=== PATIENT | male | born 1980 | race Caucasian/White ===

== ENCOUNTER → 2017-05-29 12:47 | Outpatient (CLI) | payer OTHER, SELFPAY | PROVIDERS: Family Provider Internal Medicine Adolescent Medicine; PCP Internal Medicine Adolescent Medicine; Visit Provider Internal Medicine Adolescent Medicine | DX: R07.9 Chest pain, unspecified (principal); I10 Essential (primary) hypertension | CPT/HCPCS: 93017 ==

== ENCOUNTER → 2017-07-16 06:17 | Outpatient (CLI) | payer OTHER, SELFPAY ==
--- NOTE | 2017-07-16 06:48 | NM_ITS ---
History and Indications: Hypertension, hyperlipidemia, tobacco use, family history chest pain. Procedure: Patient exercised on Catrachito protocol 11 minutes, resting heart rate was 66 bpm resting blood pressure 146/68, with exercise maximum heart rate achieved was 1 34 bpm which is equal to 74% of the maximum predicted heart rate and a blood pressure was 164/89. Test was stopped due to shortness of breath and fatigue patient denied any complained of chest pain. Patient has good exercise capacity achieved 12.8mets of workload on treadmill, the blood pressure response to exercise was adequate, there was no exercise-induced chest discomfort. Patient did not achieve the target heart rate Electrocardiogram: Resting electrocardiogram showed sinus rhythm, with exercise there is less than 1.[address] segment depression noted from the baseline EKG. The EKG portion of the exercise Myoview is nondiagnostic. Cardiac stress and resting SPECT images: Cardiac stress and rest SPECT images were obtained using technetium 99 Myoview 31.3 mCi at stress and the 10.9 mCi at rest. Gated SPECT further analysis of segmental wall motion and calculation of the ejection fraction also done. Cardiac stress and rest SPECT images show uniform myocardial activity without any segmental perfusion abnormality, computer derived ejection fraction is 63% with no obvious regional wall motion abnormality, right ventricle is normal size and contractility. Conclusion: 1. The EKG portion of the exercise Myoview is nondiagnostic, patient has a good exercise capacity achieved 12.8mets of workload on treadmill, the blood pressure response to exercise was adequate, there was no exercise-induced chest discomfort. 2. No obvious scintigraphic evidence of reversible ischemia seen at this level of exercise, either derived ejection fraction is 63% with no obvious regional wall motion abnormality, right ventricle is normal size and contractility.
--- NOTE | 2017-07-16 09:40 | HMH.ITSHM ---
metoprolol atorvastatin protonix flomax
== END ==
PROVIDERS: Family Provider Internal Medicine Adolescent Medicine; PCP Internal Medicine Adolescent Medicine; Visit Provider Internal Medicine Adolescent Medicine
DX: R07.9 Chest pain, unspecified (principal)
CPT/HCPCS: 78452; 93017; A9502

== ENCOUNTER 2020-03-20 14:59 | Observation (INO) | payer OTHER, SELFPAY ==
[2020-03-20] VITALS (11 sets, daily range): BP systolic 105–133; BP diastolic 71–100; PULSE 74–97; RESP 16–18; TEMP 36.9–37; O2SAT 96–98; BMI 29.6; BMI 30.3; BMI 29.9
--- NOTE | 2020-03-20 15:04 | HMH.EDGENADL ---
ED Disposition Clinical Impression: Abscess Disposition: Admitted As Inpatient Condition on Discharge: Good Referrals: Duncan Morse MD [Primary Care Provider] - - Critical Care Critical Care Time: No Attestation: On , the high probability of a clinically significant, sudden or life threatening deterioration of the following system(s) required my full and direct attention, intervention and personal management. The time I documented below is in addition to time spent performing reported procedures but includes the following listed in this critical care notation. Medical Decision Making - Medical Records Medical records reviewed: Yes: I reviewed the patient's medical records. - Kiko Inquiry Pt receiving controlled substance: No Vital Signs: 03/20/20 14:59 03/20/20 16:59 03/20/20 18:43 Temperature 98.6 F Temperature Source Oral Pulse Rate [Right] 97 H 94 H 74 Respiratory Rate 16 18 16 Blood Pressure [Right Arm] 133/100 H 125/79 115/82 Blood Pressure Mean [Right Arm] 111 94 93 Blood Pressure Source [Right Arm] Automatic Cuff Automatic Cuff Automatic Cuff Blood Pressure Position [Right Arm] Sitting Supine Sitting 02 Sat by Pulse Oximetry 97 97 98 Oxygen Delivery Method Room Air Room Air Room Air - Lab Data Lab results reviewed: Yes: I reviewed the patient's lab results. Lab Results 03/20/20 15:08: WBC 12.5 H, RBC 4.99, Hgb 15.0, Hct 46.4, MCV 93.0, MCH 30.1, MCHC 32.4, RDW 13.4, Plt Count 253, MPV 8.0, Neut % (Auto) 76.2, Lymph % (Auto) 14.8, [place] % (Auto) 5.2, Eos % (Auto) 2.8, Baso % (Auto) 1.0, Neut # (Auto) 9.5 H, Lymph # (Auto) 1.9, [place] # (Auto) 0.7, Eos # (Auto) 0.4, Baso # (Auto) 0.1 03/20/20 15:08: Sodium 140, Potassium 3.9, Chloride 103, Carbon Dioxide 30, Anion Gap 10.9, BUN 16, Creatinine 0.90, Estimated Creat Clear 116, Estimated GFR 93, Est GFR ( Amer) 113, Glucose 104 H, Calcium 10.0 Result diagrams: 03/20/20 15:08 03/20/20 15:08 Orders (Tests/Meds): ED MEDICATIONS Generic Name Dose Route Start Last Admin Trade Name Freq PRN Reason Stop Dose Admin Acetaminophen 650 mg 03/20/20 20:11 Acetaminophen 325mg Tab PO 04/19/20 20:10 Q4HP PRN As Needed for Fever or Pain Docusate Sodium 100 mg 03/21/20 09:00 Docusate Sodium 100 Mg Capsule PO 04/20/20 08:59 DAILY DAVID Lactated Ringer's 1,000 mls @ 100 mls/hr 03/21/20 00:01 Lactated Ringer's 1000 Ml Bag IV 04/20/20 00:00 .Q10H DAVID Ibuprofen 400 mg 03/20/20 20:11 Ibuprofen 400 Mg Tablet PO 04/19/20 20:10 Q6HP PRN Mild Pain Morphine Sulfate 4 mg 03/20/20 20:11 Morphine 2mg/Ml Syringe IV 04/19/20 20:10 Q4HP PRN Severe Pain Ondansetron HCl 4 mg 03/20/20 20:11 Ondansetron 4mg/2ml Vial IV 04/19/20 20:10 Q8HP PRN Nausea Discontinued Medications Generic Name Dose Route Start Last Admin Trade Name Freq PRN Reason Stop Dose Admin Vancomycin HCl 1,500 mg/ 250 mls @ 125 mls/hr 03/20/20 16:15 03/20/20 17:43 Sodium Chloride IV 03/20/20 18:14 125 mls/hr ONCE ONE Administration Iopamidol 100 ml 03/20/20 17:42 03/20/20 17:42 Iopamidol-370 (76%);100ml Bottle IV 03/20/20 17:43 100 ml ONCE ONE Administration Miscellaneous 1 each 03/20/20 16:15 Vancomycin Consult Request * 04/19/20 16:14 CONSULT [facility] Morphine Sulfate 4 mg 03/20/20 16:16 03/20/20 16:17 Morphine 4mg/Ml Syringe IV 03/20/20 16:17 4 mg ONCE ONE Administration Ondansetron HCl 4 mg 03/20/20 16:16 03/20/20 16:17 Ondansetron 4mg/2ml Vial IV 03/20/20 16:17 4 mg ONCE ONE Administration Sodium Chloride 10 ml 03/20/20 17:42 03/20/20 17:42 Sodium Chloride 0.9% 10ml Syr (Rad Only) IV 03/20/20 17:43 10 ml ONCE ONE Administration ORDERS Category Date Time Status CT femur LT wo/w con Stat Cat Scan 03/20/20 16:17 Taken Consult to On-Call Gen'l Surgeon [CONS] Routine Cons 03/20/20 20:18 Ordered Basic Metabolic Le
--- NOTE | 2020-03-20 15:07 | CA_ITS ---
APPROVED REPORT Left Lower Extremity Venous Study for DVT. [employer] Installer: GUDELIA DUMONT, SYDS Indications Lower Extremity Pain: Left Lower Extremity Edema: Left redness, warmth to thigh Findings Color flow duplex of the left lower extremity demonstrates no evidence of superficial venous thrombophlebitis. Edematous tissue at the interior left thigh at area of intrest. Color flow duplex demonstrates no evidence of DVT of the following left lower extremity Veins:. Conclusion Color flow duplex of the left lower extremity demonstrates no evidence of superficial venous thrombophlebitis. Edematous tissue at the interior left thigh at area of intrest. Color flow duplex demonstrates no evidence of DVT of the following left lower extremity Veins:. Electronically signed by : Bud Cox MD 03/21/2020 14:41:09
--- NOTE | 2020-03-20 15:08 | PC.NURSE ---
notified [facility] lab of doppler order
[2020-03-20 15:20] LABS: Basophils # 0.1 K/mm3 (0-0.2); Eosinophils # 0.4 K/mm3 (0.0-0.4); Eosinophils % 2.8 % (0.1-12.0); Hematocrit 46.4 % (42.0-52.0); Lymphocytes # 1.9 K/mm3 (0.7-4.5); Lymphocytes % 14.8 % (10-50); Mean Corpuscular HGB Conc 32.4 g/dL (31.8-35.4); Mean Corpuscular Hemoglobin 30.1 pg (27.0-31.2); Monocytes # 0.7 K/mm3 (0.1-1.0); Monocytes % 5.2 % (1.7-9.3); Neutrophils # 9.5 K/mm3 (1.8-7.8); Neutrophils % 76.2 % (37.0-80.0); Platelet Count 253 K/mm3 (142-424); Red Blood Count 4.99 M/mm3 (4.60-6.20); Red Cell Distribution Width 13.4 % (11.5-17.5); White Blood Count 12.5 K/mm3 (4.8-10.8)
--- NOTE | 2020-03-20 15:37 | PC.NURSE ---
CV lab staff at
--- NOTE | 2020-03-20 16:04 | PC.NURSE ---
notified pharmacy of vancomycin consult
--- NOTE | 2020-03-20 16:17 | CT_ITS ---
PROCEDURE: CT FEMUR LT WO/W CON CLINICAL HISTORY: r/o Nec Fasc L thigh Pain and swelling in the mid aspect of the left thigh COMPARISON: No exams were available for comparison TECHNIQUE: Axial images obtained with sagittal and coronal reformats. All CT scans at the facility use one or more dose reduction, viz: automated exposure control, ma/kV adjustment per patient size (including targeted exams where dose is matched to indication, i.e. head), or iterative reconstruction technique. FINDINGS: No acute fracture or dislocation. No bony destructive process. There is mild stranding of the subcutaneous tissues medially along the left thigh. There is also mild haziness of the fat within the neurovascular bundle area. Subtle low-density changes are present within the mid to distal aspect the adductor longus muscle. There is some heterogeneous enhancement in this region. This area measures approximately 3 by 2 by 4.7 cm transverse AP and longitudinal. This is suspicious for a developing abscess. No soft tissue gas. No foreign body apparent. Small nodes are present in the left inguinal region. IMPRESSION: Suspect intramuscular developing abscess within the left adductor longus muscle as described above with associated cellulitis. Hematoma is included in the differential diagnosis. Dictated by: Bud Cox MD 03/21/2020 10:14 Bud Cox MD in OV 03/21/2020 10:14
[2020-03-20 16:35] LABS: Chloride 103 mmol/L (98-107); Potassium 3.9 mmoL/L (3.5-5.1); Sodium 140 mmol/L (136-145)
[2020-03-20 16:38] LABS: Anion Gap 10.9 mEq/L (5-15); Blood Urea Nitrogen 16 mg/dl (9-20); Carbon Dioxide 30 mmol/L (22.0-30.0); Creatinine Clearance Estimated 116 mL/min (50-200); Estimated Glomerular Filt Rate 93 ml/min (>60); GFR (African American) 113 ML/MIN (>60); Glucose 104 mg/dl (74-100)
--- NOTE | 2020-03-20 19:29 | PC.NURSE ---
Surgery paged at this time
--- NOTE | 2020-03-20 22:58 | PC.NURSE ---
PT ARRIVED TO THE FLOOR VIA W/C FROM ED WITH STAFF AT [id number]
[2020-03-21 00:39] VITALS: O2SAT 96
--- NOTE | 2020-03-21 02:26 | PC.NURSE ---
PT IS RESTING IN BED. RECEIVED PAIN MEDICATION FOR DISCOMFORT. PT HAS REDNESS NOTED TO THE LEFT MEDIAL THIGH THAT IS VERY TENDER/WARM TO TOUCH. PT HAS AMBULATED TO THE BATHROOM AND AROUND THE ROOM. PT HAS BEEN NPO SINCE MIDNIGHT. LUNG SOUNDS CLEAR. ABDOMEN SOFT/NON TENDER WITH ACTIVE BOWEL SOUNDS. PT STATES HIS LAST BOWEL MOVEMENT WAS YESTERDAY MORNING. VSS. WILL CONTINUE TO MONITOR.
[2020-03-21 04:00] VITALS: BP 93/50; PULSE 78; RESP 18; TEMP 36.4; O2SAT 96
[2020-03-21 06:00] VITALS: BMI 30.2
[2020-03-21 06:51] LABS: Basophils % 0.4 % (0.1-2.0); Eosinophils # 0.4 K/mm3 (0.0-0.4); Eosinophils % 3.2 % (0.1-12.0); Hematocrit 40.2 % (42.0-52.0); Lymphocytes # 1.4 K/mm3 (0.7-4.5); Lymphocytes % 12.8 % (10-50); Mean Corpuscular HGB Conc 32.3 g/dL (31.8-35.4); Mean Corpuscular Hemoglobin 30.3 pg (27.0-31.2); Mean Corpuscular Volume 93.6 fl (80-94); Mean Platelet Volume 7.8 fl (7.4-10.4); Monocytes # 0.8 K/mm3 (0.1-1.0); Monocytes % 7.3 % (1.7-9.3); Neutrophils # 8.4 K/mm3 (1.8-7.8); Neutrophils % 76.3 % (37.0-80.0); Platelet Count 210 K/mm3 (142-424); Red Blood Count 4.29 M/mm3 (4.60-6.20); Red Cell Distribution Width 13.4 % (11.5-17.5)
[2020-03-21 06:58] LABS: Chloride 107 mmol/L (98-107); Potassium 4.3 mmoL/L (3.5-5.1); Sodium 139 mmol/L (136-145)
[2020-03-21 07:01] LABS: Anion Gap 6.3 mEq/L (5-15); Blood Urea Nitrogen 18 mg/dl (9-20); Carbon Dioxide 30 mmol/L (22.0-30.0); Creatinine Clearance Estimated 103 mL/min (50-200); Estimated Glomerular Filt Rate 83 ml/min (>60); GFR (African American) 100 ML/MIN (>60); Glucose 126 mg/dl (74-100)
[2020-03-21 07:07] LABS: Calcium 8.3 mg/dl (8.4-10.2)
--- NOTE | 2020-03-21 07:33 | HMH.PHAINT ---
home medication reconciliation completed using list from [facility]
--- NOTE | 2020-03-21 07:34 | HMH.PHAVTE ---
[facility] Pharmacy VTE Monitoring - Patient Demographics Admission date: 03/21/20 Report Date: 03/21/20 Time: 07:34 Allergies/Adverse Reactions: Patient Allergies No Known Allergies Allergy (Unverified 06/29/18 11:26) Height: 1.57 m Weight: 74.4 kg Patient Problems: Current Active Problems Abscess (Acute) - VTE Risk Labs: VTE Related Lab Results Hgb 13.0 g/dL (14.1-18.0) L D 03/21/20 06:23 Hct 40.2 % (42.0-52.0) L 03/21/20 06:23 Plt Count 210 K/mm3 (142-424) 03/21/20 06:23 BUN 18 mg/dl (9-20) 03/21/20 06:23 Creatinine 1.00 mg/dl (0.66-1.25) 03/21/20 06:23 Estimated Creat Clear 103 mL/min (50-200) 03/21/20 06:23 Was VTE Risk Assessment Performed: Yes VTE Score: 0 VTE Risk Level: Very Low Risk Clinical Trial Participant: No - Prophylaxis VTE Prophylaxis Ordered?: Yes Types of VTE Prophylaxis: TEDS Knee High
[2020-03-21 08:00] VITALS: BP 107/71; PULSE 79; RESP 16; TEMP 36.8; O2SAT 98
--- NOTE | 2020-03-21 08:11 | HMH.GSCON ---
*Admission Date: 03/21/20 *Reason for consult:: Abscess *History of present illness: This is a 39-year-old gentleman seen in consultation from the service of Dr. Morse for evaluation regarding a left medial thigh abscess. He presents the emergency department yesterday evening with increasing erythema along the proximal left medial thigh. He also describes some crackly popping in the lower left leg. He states that this crackling was definitely below the knee; however, none of his erythematous changes or tenderness was below the knee. This morning he states he feels much better . Per the patient the redness has dramatically improved on antibiotics and he no longer has any sensation of crackling . Reportedly, the patient's CT scan was concerning for a 2.5 cm abscess. Forwarded from the emergency department evaluation: General Adult HPI - General Stated complaint: redness to thigh Time Seen by Provider: 03/20/20 15:04 Mode of Arrival: Ambulatory Source of Information: Patient - History of Present Illness HPI narrative: 39yo M with past medical history significant for prostatitis presents the emergency department secondary to erythema with pain to his left medial thigh. Patient reports he developed pain yesterday without erythema noticed erythema this morning. He outlined it with a marker and proceeded to see his urologist. By time he returned from his urologist the area in question had already expanded outside the marked area. He complains of extreme tenderness to palpate, pain with ambulation and moving his leg. He states he has a sensation of air bubbles or rice crispies. He denies fever, nausea/vomiting/diarrhea. He denies previous symptoms similar to this. He denies any lesion to his skin that could have been the origin for his current condition. Review of Systems - Constitutional Denies fever(s) - *Respiratory Denies cough - *Musculoskeletal Denies limited joint movement - Integumentary/Breasts Reports redness - Psychiatric Denies anxiety - Hematologic/Lymphatic Denies easy bruising [facility] History Medical History: Reports:: Hyperlipidemia, Hypertension Denies:: Cancer, Diabetes Mellitus Type 1, Diabetes Mellitus Type 2, MRSA *Have you ever received a pneumonia vaccine?: No *Have you received a flu vaccine this season?: No Other Surgeries: Yes: Cholecystectomy Amputation: No Fractures: No - *Social History Last grade of school completed: Some college Smoking Status: Current every day smoker Tobacco Type: cigarettes # Packs/Day (cigarettes): 1 #Yrs smoked (if former smoker): 20 Alcohol Intake: never Alcohol Intake Frequency:: holidays/special occasions only Substance Use Type: denies use *Occupational Status:: employed Housing: house Household Members: spouse *Travel in the last 8 weeks: None Family Hx:: Cancer, Hyperlipidemia, Hypertension, Kidney Disease Meds Home Medications Medication Instructions Recorded Confirmed Type atorvastatin 40 mg tablet 40 mg PO DAILY 06/29/18 03/20/20 History pantoprazole 40 mg tablet,delayed 40 mg PO DAILY 06/29/18 03/20/20 History release tamsulosin 0.4 mg capsule 0.4 mg PO DAILY 06/29/18 03/20/20 History Metoprolol Tartrate [Lopressor 25 mg PO DAILY 03/20/20 03/20/20 History 25mg tablet] Allergies Allergy/AdvReac Type Severity Reaction Status Date / Time No Known Allergies Allergy Unverified 06/29/18 11:26 Exam Vital signs and Labs for Last 24 Hours: Temp Pulse Resp BP Pulse Ox 97.6 F 78 18 93/50 L 96 03/21/20 04:00 03/21/20 04:00 03/21/20 04:00 03/21/20 04:00 03/21/20 04:00 Laboratory Results - last 24 hr 03/20/20 15:08: WBC 12.5 H, RBC 4.99, Hgb 15.0, Hct 46.4, MCV 93.0, MCH 30.1, MCHC 32.4, RDW 13.4, Plt Count 253, MPV 8.0, Neut % (Auto) 76.2, Lymph % (Auto) 14.8, [place] % (Auto) 5.2, Eos % (Auto) 2.8, Baso % (Auto) 1.0, Neut # (Auto) 9.5 H, Lymph # (Auto) 1.9, [place] # (Auto) 0.7, Eos # (Auto) 0.4, Baso #
--- NOTE | 2020-03-21 08:20 | HMH.HP ---
*Admission Date: 03/21/20 *Chief complaint: Left thigh swelling and redness *History of present illness: HPI narrative: 39yo M with past medical history significant for prostatitis presents the emergency department secondary to erythema with pain to his left medial thigh. Patient reports he developed pain yesterday without erythema noticed erythema this morning. He outlined it with a marker and proceeded to see his urologist. By time he returned from his urologist the area in question had already expanded outside the marked area. He complains of extreme tenderness to palpate, pain with ambulation and moving his leg. He states he has a sensation of air bubbles or rice crispies. He denies fever, nausea/vomiting/diarrhea. He denies previous symptoms similar to this. He denies any lesion to his skin that could have been the origin for his current condition. Medical Decision Narrative: 39yo M evaluated emergency department secondary to skin changes on his left medial thigh. Patient reports these changes began today and have expanded quickly. He reports sensation of rice crispies or bubbles in his skin. Differential diagnosis includes was not limited to: Erysipelas/cellulitis, DVT, necrotizing fasciitis. Ultrasound negative for blood clot. Patient started on IV vancomycin after blood cultures were obtained. CT with IV contrast has been ordered for lower extremity to rule out necrotizing fasciitis. CT scan concerning for 25 x 20 x 25 mm abscess to the adductor longus muscle. Case was discussed with Dr. Galindo of surgery at 1930. He advised to have medicine admit the patient and consult general surgery. Dr. Jones is covering for Dr. Ceron this evening and is coming on shift in a few moments. The case will be discussed with him for admission at checkout. Above notes per emergency room doctor. Agree with admission. Patient evaluated this morning, notes that he already feels better. Much less redness and pain. [facility] History I have reviewed the patient's past medical history: Yes Medical History: Reports:: Hyperlipidemia, Hypertension Denies:: Cancer, Diabetes Mellitus Type 1, Diabetes Mellitus Type 2, MRSA *Have you ever received a pneumonia vaccine?: No *Have you received a flu vaccine this season?: No Other Surgeries: Yes: Cholecystectomy Amputation: No Fractures: No - *Social History Last grade of school completed: Some college Smoking Status: Current every day smoker Tobacco Type: cigarettes # Packs/Day (cigarettes): 1 #Yrs smoked (if former smoker): 20 Alcohol Intake: never Alcohol Intake Frequency:: holidays/special occasions only Substance Use Type: denies use *Occupational Status:: employed Housing: house Household Members: spouse *Travel in the last 8 weeks: None Family Hx:: Cancer, Hyperlipidemia, Hypertension, Kidney Disease Review of Systems - Review of Systems Review of systems:: pertinent systems reviewed and negative unless documented below Meds Home Medications Medication Instructions Recorded Confirmed Type atorvastatin 40 mg tablet 40 mg PO DAILY 06/29/18 03/20/20 History pantoprazole 40 mg tablet,delayed 40 mg PO DAILY 06/29/18 03/20/20 History release tamsulosin 0.4 mg capsule 0.4 mg PO DAILY 06/29/18 03/20/20 History Metoprolol Tartrate [Lopressor 25 mg PO DAILY 03/20/20 03/20/20 History 25mg tablet] Allergies Allergy/AdvReac Type Severity Reaction Status Date / Time No Known Allergies Allergy Unverified 06/29/18 11:26 Exam Vital signs and Labs for Last 24 Hours: Temp Pulse Resp BP Pulse Ox 97.6 F 78 18 93/50 L 96 03/21/20 04:00 03/21/20 04:00 03/21/20 04:00 03/21/20 04:00 03/21/20 04:00 Laboratory Results - last 24 hr 03/20/20 15:08: WBC 12.5 H, RBC 4.99, Hgb 15.0, Hct 46.4, MCV 93.0, MCH 30.1, MCHC 32.4, RDW 13.4, Plt Count 253, MPV 8.0, Neut % (Auto) 76.2, Lymph % (Auto) 14.8, [place] % (Auto) 5.2, Eos % (Auto) 2.8, Baso % (Auto) 1.0, Neut # (Auto) 9.5
[2020-03-21 15:44] VITALS: BP 99/63; PULSE 78; RESP 15; TEMP 37.1; O2SAT 99
--- NOTE | 2020-03-21 18:22 | PC.NURSE ---
Pt alert and oriented x 4. RR even and unlabored and unlabored. Hs received IV ABT per apr. Has been up to chair this shift and showered. CB in reach. Abd soft and non tender. S1,S2. Lungs cta, L thing is less red and pt states it has improved as far as color, although it is still warm to touch. PRN Morphine x 1 this shift. No complaints at this time.
[2020-03-21 20:00] VITALS: BP 120/72; PULSE 84; RESP 15; TEMP 37.1; O2SAT 99
[2020-03-22 04:00] VITALS: BP 104/58; PULSE 88; RESP 15; TEMP 36.9; O2SAT 96
[2020-03-22 05:03] VITALS: BMI 32.3
--- NOTE | 2020-03-22 05:04 | PC.NURSE ---
Pt is A&Ox4. Lung sounds CTA. VSS. Pt has c/o left thigh pain x2 this shift, pt medicated per APR. Abscess on left thigh remains reddened and warm to touch. Active bowel sounds in all 4 quads, no BM noted this shift. Pt has taken self to the restroom this shift w/ no difficulty. No other acute changes or complaints at this time.
--- NOTE | 2020-03-22 07:08 | HMH.GSPN ---
Subjective Patient reports: no new complaints Progress Note: A&P (1) Cellulitis of thigh Status: Acute Assessment and plan: The patient is now on daptomycin and clindamycin. Clinically he has remained stable over the past 24 hours. Minimal blush and some swelling remains; however, no area of fluctuance or spreading cellulitis is noted. No need for urgent surgical intervention Close ongoing follow-up Continue antibiotics as per primary service If he does not show continued improvement in the next 3-5 days, repeat evaluation with either a CT scan or ultrasound warranted If he shows any signs of clinical deterioration, incision and drainage/possible debridement planned Exam Vital signs and Labs for Last 24 Hours: Temp Pulse Resp BP Pulse Ox 98.5 F 88 15 104/58 L 96 03/22/20 04:00 03/22/20 04:00 03/22/20 04:00 03/22/20 04:00 03/22/20 04:00 I & O for Last 24 hours: Intake & Output 03/19/20 03/20/20 03/21/20 03/22/20 11:59 11:59 11:59 11:59 Intake Total 1782 / 1782 1940 / 1940 Output Total 200 / 200 2750 / 2750 Balance 1582 / 1582 -810 / -810 Weight 164 lb 0.383 oz 175 lb 6 oz - Constitutional no acute distress - *Routine Respiratory Exam Absent: respiratory distress - *Routine Cardiovascular Exam Present: RRR - *Routine Skin Exam Comments: Left medial thigh unchanged. Minimal blush with no spreading cellulitis or subcutaneous emphysema noted. No fluctuance. Minimal induration (no change).
[2020-03-22 08:00] VITALS: BP 108/61; PULSE 89; RESP 18; TEMP 37.2; O2SAT 96
--- NOTE | 2020-03-22 08:40 | HMH.ACPN2 ---
Internal Medicine - PN: Subj *Date: 03/22/20 *Time: 08:40 Interval history: Patient had quite a bit of pain overnight when he moves the leg, but no fever, no increasing redness. Appreciate surgical note, reviewed. Exam Vital signs and Labs for Last 24 Hours: Temp Pulse Resp BP Pulse Ox 98.5 F 88 15 104/58 L 96 03/22/20 04:00 03/22/20 04:00 03/22/20 04:00 03/22/20 04:00 03/22/20 04:00 I & O for Last 24 hours: Intake & Output 03/19/20 03/20/20 03/21/20 03/22/20 11:59 11:59 11:59 11:59 Intake Total 1782 / 1782 1940 / 1940 Output Total 200 / 200 2750 / 2750 Balance 1582 / 1582 -810 / -810 Weight 164 lb 0.383 oz 175 lb 6 oz Narrative: Cardiopulmonary assessment unremarkable. Patient in good spirits but concerned about pain. Leg is improving in regards to the redness which is slight, and no crepitus noted. Abdomen soft nontender. No distal perfusion problems Assessment and Plan (1) Cellulitis of thigh Status: Acute Category: Medical Code(s): L03.119 - Cellulitis of unspecified part of limb - Assessment and plan all Dx Assessment and Plan for all problems:: Overall improving slightly, white count has trended downward. Continue daptomycin and clindamycin. Toradol and K pad for pain.
--- NOTE | 2020-03-22 15:05 | PC.NURSE ---
PT IS RESTING IN BED. PT STATED HE DID NOT SLEEP WELL LAST NIGHT B/C HIS PAIN WAS TOO SEVERE. PT HAS HAD ONE DOSE OF TORADOL THIS SHIFT AND HE STATED IT HAS WORKED WELL. KPAD HAS BEEN APPLIED TO THE LEFT THIGH. REDNESS NOTED TO THE THIGH BUT DOES NOT APPEAR TO HAVE SPREAD ANY FURTHER HOWEVER AREA IS STILL VERY WARM/TENDER. TOLERATED SHOWER THIS SHIFT. EATING AND DRINKING WELL. LUNG SOUND CLEAR. ABDOMEN SOFT/NON TENDER WITH ACTIVE BOWEL SOUNDS. VOIDING WELL. VSS. WILL CONTINUE TO MONITOR.
[2020-03-22 15:23] VITALS: BP 116/71; PULSE 97; RESP 16; TEMP 37.7; O2SAT 97
[2020-03-22 20:00] VITALS: BP 124/74; PULSE 70; RESP 14; TEMP 37.4; O2SAT 97
[2020-03-22 23:27] VITALS: TEMP 37.9
[2020-03-23 00:40] VITALS: TEMP 37
[2020-03-23 04:00] VITALS: BP 108/64; PULSE 78; RESP 16; TEMP 36.7; O2SAT 98
[2020-03-23 05:01] VITALS: BMI 32.2
--- NOTE | 2020-03-23 05:26 | PC.NURSE ---
pt has rested ok this shift, pt is alert and oriented, lungs remains clear to auscultate, heart reg, bs x 4 quads, left upper leg remains swollen, red, warm to touch, and painful. pt has ran a low grade fever with temp high being 100.2 pt very symptomatic and shivering with this fever and miserable per pt report, fever and pain both managed with IV torodol and tylenol. no needs at this time will continue to monito
[2020-03-23 06:47] VITALS: TEMP 37.4
[2020-03-23 07:41] LABS: Basophils % 0.2 % (0.1-2.0); Eosinophils # 0.3 K/mm3 (0.0-0.4); Hematocrit 40.1 % (42.0-52.0); Lymphocytes # 0.9 K/mm3 (0.7-4.5); Mean Corpuscular HGB Conc 32.5 g/dL (31.8-35.4); Mean Corpuscular Hemoglobin 30.3 pg (27.0-31.2); Mean Corpuscular Volume 93.3 fl (80-94); Monocytes # 0.5 K/mm3 (0.1-1.0); Monocytes % 4.8 % (1.7-9.3); Neutrophils # 8.4 K/mm3 (1.8-7.8); Platelet Count 219 K/mm3 (142-424); Red Cell Distribution Width 13.2 % (11.5-17.5); White Blood Count 10.1 K/mm3 (4.8-10.8)
[2020-03-23 07:43] LABS: Chloride 105 mmol/L (98-107); Sodium 139 mmol/L (136-145)
[2020-03-23 07:44] VITALS: BP 139/79; PULSE 85; RESP 18; TEMP 37.4; O2SAT 97
[2020-03-23 07:44] LABS: Potassium 4.5 mmoL/L (3.5-5.1)
[2020-03-23 07:46] LABS: Blood Urea Nitrogen 15 mg/dl (9-20); Creatinine Clearance Estimated 122 mL/min (50-200); Estimated Glomerular Filt Rate 93 ml/min (>60); GFR (African American) 113 ML/MIN (>60)
[2020-03-23 07:47] LABS: Anion Gap 8.5 mEq/L (5-15); Calcium 8.9 mg/dl (8.4-10.2); Carbon Dioxide 30 mmol/L (22.0-30.0); Glucose 111 mg/dl (74-100)
--- NOTE | 2020-03-23 08:05 | HMH.GSPN ---
Subjective Patient reports: no new complaints, still having pain Progress Note: A&P (1) Cellulitis of thigh Status: Acute Assessment and plan: Overall, the patient is slowly improving. He does continue to have fairly significant pain; however, overall cellulitic change (blush) improving. Continue antibiotics as per primary service Close outpatient follow-up when deemed appropriate for discharge No need for acute surgical intervention If he does not show continued improvement in the next 48-72 hours, repeat evaluation with either a CT scan or ultrasound warranted If he shows any signs of clinical deterioration, incision and drainage/possible debridement planned Exam Vital signs and Labs for Last 24 Hours: Temp Pulse Resp BP Pulse Ox 99.4 F 85 18 139/79 97 03/23/20 07:44 03/23/20 07:44 03/23/20 07:44 03/23/20 07:44 03/23/20 07:44 Laboratory Results - last 24 hr 03/23/20 07:10: WBC 10.1, RBC 4.30 L, Hgb 13.0 L, Hct 40.1 L, MCV 93.3, MCH 30.3, MCHC 32.5, RDW 13.2, Plt Count 219, MPV 8.0, Neut % (Auto) 83.0 H, Lymph % (Auto) 9.0 L, [place] % (Auto) 4.8, Eos % (Auto) 3.0, Baso % (Auto) 0.2, Neut # (Auto) 8.4 H, Lymph # (Auto) 0.9, [place] # (Auto) 0.5, Eos # (Auto) 0.3, Baso # (Auto) 0.0 03/23/20 07:10: Sodium 139, Potassium 4.5, Chloride 105, Carbon Dioxide 30, Anion Gap 8.5, BUN 15, Creatinine 0.90, Estimated Creat Clear 122, Estimated GFR 93, Est GFR ( Amer) 113, Glucose 111 H, Calcium 8.9 I & O for Last 24 hours: Intake & Output 03/20/20 03/21/20 03/22/20 03/23/20 11:59 11:59 11:59 11:59 Intake Total 1782 / 1782 2180 / 2180 2093 / 2093 Output Total 200 / 200 3400 / 3400 3025 / 3025 Balance 1582 / 1582 -1220 / -1220 -932 / -932 Weight 164 lb 0.383 oz 175 lb 6 oz 175 lb Microbiology Reports for the Last 24 Hours: Microbiology 03/20/20 16:20 Blood Blood Culture - Preliminary NO GROWTH AFTER 48 HOURS 03/20/20 16:20 Blood Blood Culture - Preliminary NO GROWTH AFTER 48 HOURS - Constitutional no acute distress - *Routine Respiratory Exam Absent: respiratory distress - *Routine Cardiovascular Exam Present: RRR - *Routine Skin Exam Comments: Left medial thigh tenderness to palpation remains. No significant cellulitic change. No significant induration or fluctuance.
--- NOTE | 2020-03-23 08:30 | HMH.DCSUM ---
General - General Admission date:: 03/20/20 Discharge date: 03/23/20 HPI HPI: HPI narrative: 39yo M with past medical history significant for prostatitis presents the emergency department secondary to erythema with pain to his left medial thigh. Patient reports he developed pain yesterday without erythema noticed erythema this morning. He outlined it with a marker and proceeded to see his urologist. By time he returned from his urologist the area in question had already expanded outside the marked area. He complains of extreme tenderness to palpate, pain with ambulation and moving his leg. He states he has a sensation of air bubbles or rice crispies. He denies fever, nausea/vomiting/diarrhea. He denies previous symptoms similar to this. He denies any lesion to his skin that could have been the origin for his current condition. Medical Decision Narrative: 39yo M evaluated emergency department secondary to skin changes on his left medial thigh. Patient reports these changes began today and have expanded quickly. He reports sensation of rice crispies or bubbles in his skin. Differential diagnosis includes was not limited to: Erysipelas/cellulitis, DVT, necrotizing fasciitis. Ultrasound negative for blood clot. Patient started on IV vancomycin after blood cultures were obtained. CT with IV contrast has been ordered for lower extremity to rule out necrotizing fasciitis. CT scan concerning for 25 x 20 x 25 mm abscess to the adductor longus muscle. Case was discussed with Dr. Galindo of surgery at 1930. He advised to have medicine admit the patient and consult general surgery. Dr. Jones is covering for Dr. Ceron this evening and is coming on shift in a few moments. The case will be discussed with him for admission at checkout. Above notes per emergency room doctor. Agree with admission. Patient evaluated this morning, notes that he already feels better. Much less redness and pain. Hospital Course Hospital Course: 39-year-old male admitted for concern for abscess in left medial thigh. Was initiated on empiric antibiotics and imaging obtained. Patient responded clinically to IV antibiotics. CT of legs showed no definitive abscess or fluid collection needing drainage. Surgery was consulted and recommended antibiotics/medical management at this time as there is no clear indication for surgical intervention. Patient was transitioned to oral antibiotics to continue treatment in the outpatient setting. Given normalization of white cell count, afebrile, improvement in erythema, meeting criteria for outpatient management. We will plan to continue clindamycin and doxycycline along with Toradol for pain. Afebrile, improved tenderness, no SOA, CP, SHORE, Nausea, vomiting. Objective Vital signs: Temp Pulse Resp BP Pulse Ox 99.4 F 85 18 139/79 97 03/23/20 07:44 03/23/20 07:44 03/23/20 07:44 03/23/20 07:44 03/23/20 07:44 no acute distress - *Routine HEENT Exam Head: Present: normocephalic Eye: Present: EOMI, PERRL ENT: Present: mucous membranes moist - *Routine Neck Exam Present: supple - *Routine Respiratory Exam Present: CTA bilaterally - *Routine Cardiovascular Exam Present: RRR - *Routine Abdominal Exam Present: soft, normoactive bowel sounds. Absent: tenderness - *Routine Extremities Exam Absent: cyanosis, clubbing, edema Comments: mild tenderness overlying ledial left thigh, intervally improved since admission. - *Routine Skin Exam Present: warm (slight erythema of skin overlying medial proximal thigh). Absent: rash Results Labs on day of discharge: Labs from last 24 hours 03/23/20 03/23/20 07:10 07:10 WBC 10.1 RBC 4.30 L Hgb 13.0 L Hct 40.1 L MCV 93.3 MCH 30.3 MCHC 32.5 RDW 13.2 Plt Count 219 MPV 8.0 Neut % (Auto) 83.0 H Lymph % (Auto) 9.0 L [place] % (Auto) 4.8 Eos % (Auto) 3.0 Baso % (Auto) 0.2 Neut # (Auto) 8.4 H Lymph
== END 2020-03-23 09:59 | disposition home or self-care (01) ==
LOC: ER 19:42 → 2ND 23:03
PROVIDERS: Admitting Provider Emergency Medicine; Emergency Provider Family Medicine; PCP Internal Medicine Adolescent Medicine; Visit Provider Internal Medicine Adolescent Medicine
DX: M60.052 Infective myositis, left thigh (principal); I10 Essential (primary) hypertension; Z72.0 Tobacco use; Z79.899 Other long term (current) drug therapy
CPT/HCPCS: 36415; 73702; 80048; 85025; 87040; 93971; 96365; 96375; 99284; G0378; J0878; J2405; J3370; Q9967; U0003

== ENCOUNTER 2020-03-25 14:14 | Inpatient (IN) | payer OTHER, SELFPAY ==
--- NOTE | 2020-03-25 13:32 | P.CONPHA_ITS ---
[facility] Pharmacy VTE Monitoring - Patient Demographics Admission date: 03/25/20 Report Date: 03/25/20 Time: 13:32 Allergies/Adverse Reactions: Patient Allergies No Known Allergies Allergy (Unverified 06/29/18 11:26) - Prophylaxis VTE Prophylaxis Ordered?: Yes Types of VTE Prophylaxis: TEDS Knee High Location of Applied Device: Bilateral Lower Extremeties
--- NOTE | 2020-03-25 13:32 | HMH.PHAINT ---
MEDICATION RECONCILIATION COMPLETED ON PATIENT USING EXTERNAL FILL HISTORY FROM PHARMACY AND DISCHARGE SUMMARY FROM PREVIOUS ADMISSION. -MUSTAPHA LAWSD
--- NOTE | 2020-03-25 13:37 | CT_ITS ---
PROCEDURE: CT FEMUR LT W CON CLINICAL HISTORY: LEFT FEMUR ABSCESS Midportion of the femur the medial side. COMPARISON: CT CT FEMUR LT WO/W CON from 03/20/2020 TECHNIQUE: Axial images obtained with sagittal and coronal reformats. All CT scans at the facility use one or more dose reduction, viz: automated exposure control, ma/kV adjustment per patient size (including targeted exams where dose is matched to indication, i.e. head), or iterative reconstruction technique. FINDINGS: Increased subcutaneous stranding which extends from the upper circumferentially to the upper portions of the lower leg and is much more extensive than on the prior CT. There is no enhancing rim enhancing fluid collection to indicate an organized abscess. There is subtle low density within and abductor muscle which was noted to be heterogeneously enhancing on the prior CT. On the current CT it measures at least 5.8 by 3.0 by 1.7 centimeters. There is moderate thickening at the medial facia in the upper thigh. Groin lymph nodes are not involved. The vasculature is unremarkable. There is no underlying bony involvement. The bony structures are unremarkable and uninvolved. There is probable sigmoid diverticulosis with no CT evidence of diverticulitis. IMPRESSION: Redemonstration of developing abscess versus hematoma. There is no organized abscess or involvement of the underlying bony structures. Marked increase in soft tissue edema throughout the thigh most prominently within the medial facia. No gas in the soft tissues. Dictated by: Kassie Moraes 03/26/2020 09:50 Kassie Moraes in [place] 03/26/2020 09:50
[2020-03-25 14:51] VITALS: BP 113/67; PULSE 101; RESP 18; TEMP 37.2; O2SAT 98; BMI 30.1
[2020-03-25 15:37] LABS: Basophils % 0.3 % (0.1-2.0); Eosinophils # 0.3 K/mm3 (0.0-0.4); Eosinophils % 3.3 % (0.1-12.0); Hematocrit 42.9 % (42.0-52.0); Hemoglobin 14.2 g/dL (14.1-18.0); Lymphocytes # 0.8 K/mm3 (0.7-4.5); Lymphocytes % 8.2 % (10-50); Mean Corpuscular HGB Conc 33.2 g/dL (31.8-35.4); Mean Corpuscular Hemoglobin 30.4 pg (27.0-31.2); Mean Corpuscular Volume 91.7 fl (80-94); Mean Platelet Volume 7.7 fl (7.4-10.4); Monocytes # 0.5 K/mm3 (0.1-1.0); Monocytes % 4.7 % (1.7-9.3); Neutrophils # 8.2 K/mm3 (1.8-7.8); Neutrophils % 83.5 % (37.0-80.0); Platelet Count 277 K/mm3 (142-424); Red Blood Count 4.67 M/mm3 (4.60-6.20); Red Cell Distribution Width 13.5 % (11.5-17.5); White Blood Count 9.8 K/mm3 (4.8-10.8)
--- NOTE | 2020-03-25 15:41 | HMH.HP ---
*Admission Date: 03/25/20 *Chief complaint: Left thigh redness, swelling and fever *History of present illness: 39-year-old extremely active male who was admitted to the hospital last week with redness and swelling of the left thigh and diagnosed with cellulitis, CT scan of femur showed developing abscess within the left adductor longus muscle of the thigh, treated with intravenous daptomycin and clindamycin and did well and was discharged with p.o. clindamycin and doxycycline 48 hours ago. Unfortunately over the past 24 hours he has worsened, swelling and redness have returned, and in fact have become worse than even his initial presentation. Patient contacted me and I direct admit him to the hospital for IV antibiotics and reimaging of the abscess area. On reflection patient notes that initial treatment with vancomycin in the hospital seemed to result in substantial improvement, and then changed to daptomycin did not seem to have as much symptomatic benefit. He has no other areas of redness or swelling on his skin. He does note that he has had for several months a cystic structure on the left medial thigh that has now vanished. [facility] History Medical History: Reports:: Hyperlipidemia, Hypertension Denies:: Cancer, Diabetes Mellitus Type 1, Diabetes Mellitus Type 2, MRSA *Have you ever received a pneumonia vaccine?: No *Have you received a flu vaccine this season?: No Other Surgeries: Yes: Cholecystectomy Amputation: No Fractures: No - *Social History Smoking Status: Current every day smoker Tobacco Type: cigarettes # Packs/Day (cigarettes): 1 #Yrs smoked (if former smoker): 20 Alcohol Intake: never Alcohol Intake Frequency:: holidays/special occasions only Substance Use Type: denies use *Occupational Status:: employed Housing: house Household Members: spouse *Travel in the last 8 weeks: None Family Hx:: Cancer, Hyperlipidemia, Hypertension, Kidney Disease Review of Systems - Review of Systems Review of systems:: pertinent systems reviewed and negative unless documented below Meds Home Medications Medication Instructions Recorded Confirmed Type atorvastatin 40 mg tablet 40 mg PO DAILY 06/29/18 03/25/20 History pantoprazole 40 mg tablet,delayed 40 mg PO DAILY 06/29/18 03/25/20 History release tamsulosin 0.4 mg capsule 0.4 mg PO DAILY 06/29/18 03/25/20 History Metoprolol Tartrate [Lopressor 25 mg PO DAILY 03/20/20 03/25/20 History 25mg tablet] Docusate Sodium 100 mg pe PO DAILY 03/25/20 03/25/20 History Doxycycline Hyclate [Doxycycline 100 mg PO BID 03/25/20 03/25/20 History 100mg Capsule] Ketorolac Tromethamine [Toradol 10 mg PO Q6H 03/25/20 03/25/20 History 10mg tablet] clindamycin HCL [Clindamycin HCl] 300 mg PO Q6H 03/25/20 03/25/20 History Allergies Allergy/AdvReac Type Severity Reaction Status Date / Time No Known Allergies Allergy Unverified 06/29/18 11:26 Exam Vital signs and Labs for Last 24 Hours: Temp Pulse Resp BP Pulse Ox 98.9 F 101 H 18 113/67 98 03/25/20 14:51 03/25/20 14:51 03/25/20 14:51 03/25/20 14:51 03/25/20 14:51 Laboratory Results - last 24 hr 03/25/20 15:20: WBC 9.8, RBC 4.67, Hgb 14.2, Hct 42.9, MCV 91.7, MCH 30.4, MCHC 33.2, RDW 13.5, Plt Count 277 D, MPV 7.7, Neut % (Auto) 83.5 H, Lymph % (Auto) 8.2 L, [place] % (Auto) 4.7, Eos % (Auto) 3.3, Baso % (Auto) 0.3, Neut # (Auto) 8.2 H, Lymph # (Auto) 0.8, [place] # (Auto) 0.5, Eos # (Auto) 0.3, Baso # (Auto) 0.0 I & O for Last 24 hours: Intake & Output 03/23/20 03/24/20 03/25/20 03/26/20 11:59 11:59 11:59 11:59 Intake Total 120 / 120 Balance 120 / 120 Weight 164 lb 9 oz - *Routine HEENT Exam Head: Present: normocephalic Eye: Present: EOMI, PERRL ENT: Present: mucous membranes moist - *Routine Neck Exam Present: supple. Absent: lymphadenopathy - *Routine Respiratory Exam Present: CTA bilaterally - *Routine Cardiovascular Exam Present: RRR - *Routine Abdominal Exam P
[2020-03-25 15:46] LABS: Chloride 106 mmol/L (98-107)
--- NOTE | 2020-03-25 15:46 | HMH.PHACONS ---
- Pharmacy Consult Date: 03/25/20 Time: 15:46 Referring provider: DR. POLK Reason for Consult:: VANCOMYCIN DOSING Allergies and ADEs:: Allergies Allergy/AdvReac Type Severity Reaction Status Date / Time No Known Allergies Allergy Unverified 06/29/18 11:26 Home Medications:: Home Medications Medication Instructions Recorded Confirmed Type atorvastatin 40 mg tablet 40 mg PO DAILY 06/29/18 03/25/20 History pantoprazole 40 mg tablet,delayed 40 mg PO DAILY 06/29/18 03/25/20 History release tamsulosin 0.4 mg capsule 0.4 mg PO DAILY 06/29/18 03/25/20 History Metoprolol Tartrate [Lopressor 25 mg PO DAILY 03/20/20 03/25/20 History 25mg tablet] Docusate Sodium 100 mg pe PO DAILY 03/25/20 03/25/20 History Doxycycline Hyclate [Doxycycline 100 mg PO BID 03/25/20 03/25/20 History 100mg Capsule] Ketorolac Tromethamine [Toradol 10 mg PO Q6H 03/25/20 03/25/20 History 10mg tablet] clindamycin HCL [Clindamycin HCl] 300 mg PO Q6H 03/25/20 03/25/20 History Height: 1.57 m Weight: 74.644 kg Laboratory Results:: Laboratory Results - last 24 hr 03/25/20 15:20: WBC 9.8, RBC 4.67, Hgb 14.2, Hct 42.9, MCV 91.7, MCH 30.4, MCHC 33.2, RDW 13.5, Plt Count 277 D, MPV 7.7, Neut % (Auto) 83.5 H, Lymph % (Auto) 8.2 L, [place] % (Auto) 4.7, Eos % (Auto) 3.3, Baso % (Auto) 0.3, Neut # (Auto) 8.2 H, Lymph # (Auto) 0.8, [place] # (Auto) 0.5, Eos # (Auto) 0.3, Baso # (Auto) 0.0 Medical History: Reports:: Hyperlipidemia, Hypertension Denies:: Cancer, Diabetes Mellitus Type 1, Diabetes Mellitus Type 2, MRSA Assessment and Plan (1) Abscess Status: Acute Category: Medical Code(s): L02.91 - Cutaneous abscess, unspecified (2) Cellulitis of thigh Status: Acute Category: Medical Code(s): L03.119 - Cellulitis of unspecified part of limb - Assessment and plan all Dx Assessment and Plan for all problems:: Pharmacokinetic dosing service Objective: Patient: Floor: Age: 39 yo Serum creatinine: 0.90 mg/dL Height: 61.8 Inches Weight (kg): 75 Assessment: IBW (kg): 54.14 Dosing wt(kg): 75 Estimated Creatinine clearance (ml/min): 83.5 CRCL method: Cockcroft and Gault using ibw(default). Drug selected: Vancomycin Loading dose (mg): 0 Vd (liters): 52.5 (factor used: 0.7 L/kg) [place] (hr-1): 0.074 Half life (hrs): 9.37 Recommended dose: 1250 mg Interval: 12 hrs Infusion time (hrs): 2.0 Predicted peak (mcg/mL): 37.6 Predicted trough (mcg/mL): 17.94 Total body weight is being used for vancomycin dosing. Recommendations: Give Vancomycin 1250 mg q 12 hrs with an expected Cpeak of 37.6 mcg/ml and an expected Ctrough of 17.94 mcg/ml Thank you for the consult, will continue to follow. Signature: MUSTAPHA LAWSD
[2020-03-25 15:47] LABS: Sodium 138 mmol/L (136-145)
[2020-03-25 15:49] LABS: Blood Urea Nitrogen 19 mg/dl (9-20); Creatinine Clearance Estimated 94 mL/min (50-200); Estimated Glomerular Filt Rate 74 ml/min (>60); GFR (African American) 90 ML/MIN (>60)
[2020-03-25 15:50] LABS: Calcium 9.1 mg/dl (8.4-10.2); Carbon Dioxide 27 mmol/L (22.0-30.0); Glucose 118 mg/dl (74-100)
[2020-03-25 15:55] LABS: C-Reactive Protein 153.9 mg/L (0-4)
--- NOTE | 2020-03-25 15:55 | PC.NURSE ---
Paged budget consultant general surgeon for this pt. Returned call at this time and transferred to Dr. Morse.
[2020-03-25 16:02] LABS: Erythrocyte Sedimentation Rate 26 mm/hr (0-15)
--- NOTE | 2020-03-25 18:46 | PC.WOUNDNOTE ---
Wound Location: Length: Width: Depth: Undermining Y/N: Tunneling cm: Granulation %: Slough/necrotic tissue %: Inflammation/swelling Y/N: Pain and/or tenderness Y/N: Exudate: Serosanguinous Sanguinous Serosanguinous Seropurulent Purulent Color: Clear [place] Cloudy/milky [place] Red Green Yellow Brown [place] Blue Consistency: Thick Thin Amount: None Scant Small Moderate Large Odor Y/N:
[2020-03-25 20:00] VITALS: BP 117/56; PULSE 92; RESP 18; TEMP 36.4; O2SAT 98
[2020-03-26] VITALS (7 sets, daily range): BP systolic 109–154; BP diastolic 56–72; PULSE 89–117; RESP 17–18; TEMP 36.8–39.5; O2SAT 95–100; BMI 30.6
--- NOTE | 2020-03-26 01:42 | PC.NURSE ---
RN aware of temperature out of range.
--- NOTE | 2020-03-26 04:35 | PC.NURSE ---
Pt has slept at intervals this shift. Has c/o throbbing to LLE. During assessment, erythema and edema noted to inner upper thigh to knee. Pt has been febrile and tachycardic this shift. Medicated per apr. He is currently NPO for AM consult. Has ambulated to BR and voided x2. No other concerns. Will continue to monitor.
[2020-03-26 06:49] LABS: Basophils % 0.3 % (0.1-2.0); Eosinophils # 0.4 K/mm3 (0.0-0.4); Eosinophils % 4.7 % (0.1-12.0); Hematocrit 40.7 % (42.0-52.0); Hemoglobin 13.4 g/dL (14.1-18.0); Lymphocytes % 11.5 % (10-50); Mean Corpuscular HGB Conc 32.9 g/dL (31.8-35.4); Mean Corpuscular Hemoglobin 30.7 pg (27.0-31.2); Mean Corpuscular Volume 93.3 fl (80-94); Mean Platelet Volume 7.6 fl (7.4-10.4); Monocytes # 0.5 K/mm3 (0.1-1.0); Monocytes % 6.1 % (1.7-9.3); Neutrophils # 6.6 K/mm3 (1.8-7.8); Neutrophils % 77.4 % (37.0-80.0); Platelet Count 262 K/mm3 (142-424); Red Blood Count 4.36 M/mm3 (4.60-6.20); Red Cell Distribution Width 13.5 % (11.5-17.5); White Blood Count 8.5 K/mm3 (4.8-10.8)
[2020-03-26 06:56] LABS: Chloride 105 mmol/L (98-107); Potassium 4.3 mmoL/L (3.5-5.1); Sodium 140 mmol/L (136-145)
[2020-03-26 06:59] LABS: Anion Gap 9.3 mEq/L (5-15); Blood Urea Nitrogen 19 mg/dl (9-20); Calcium 8.2 mg/dl (8.4-10.2); Carbon Dioxide 30 mmol/L (22.0-30.0); Creatinine Clearance Estimated 95 mL/min (50-200); Estimated Glomerular Filt Rate 74 ml/min (>60); GFR (African American) 90 ML/MIN (>60); Glucose 118 mg/dl (74-100)
--- NOTE | 2020-03-26 08:30 | P.PN_ITS ---
Internal Medicine - PN: Subj *Date: 03/26/20 *Time: 08:30 Interval history: Low-grade fevers overnight, continues to have leg pain and some hip pain from his change in ambulatory activity. Exam Vital signs and Labs for Last 24 Hours: Temp Pulse Resp BP Pulse Ox 98.2 F 89 18 113/60 98 03/26/20 08:00 03/26/20 08:00 03/26/20 08:00 03/26/20 08:00 03/26/20 08:00 Laboratory Results - last 24 hr 03/25/20 15:20: WBC 9.8, RBC 4.67, Hgb 14.2, Hct 42.9, MCV 91.7, MCH 30.4, MCHC 33.2, RDW 13.5, Plt Count 277 D, MPV 7.7, Neut % (Auto) 83.5 H, Lymph % (Auto) 8.2 L, [place] % (Auto) 4.7, Eos % (Auto) 3.3, Baso % (Auto) 0.3, Neut # (Auto) 8.2 H, Lymph # (Auto) 0.8, [place] # (Auto) 0.5, Eos # (Auto) 0.3, Baso # (Auto) 0.0 03/25/20 15:20: Sodium 138, Potassium 4.0, Chloride 106, Carbon Dioxide 27, Anion Gap 9.0, BUN 19 D, Creatinine 1.10 D, Estimated Creat Clear 94, Estimated GFR 74, Est GFR ( Amer) 90 D, Glucose 118 H, Calcium 9.1 03/25/20 15:20: ESR 26 H 03/25/20 15:20: C-Reactive Protein 153.9 H 03/26/20 05:55: WBC 8.5, RBC 4.36 L, Hgb 13.4 L, Hct 40.7 L, MCV 93.3, MCH 30.7, MCHC 32.9, RDW 13.5, Plt Count 262, MPV 7.6, Neut % (Auto) 77.4, Lymph % (Auto) 11.5, [place] % (Auto) 6.1, Eos % (Auto) 4.7, Baso % (Auto) 0.3, Neut # (Auto) 6.6, Lymph # (Auto) 1.0, [place] # (Auto) 0.5, Eos # (Auto) 0.4, Baso # (Auto) 0.0 03/26/20 05:55: Sodium 140, Potassium 4.3, Chloride 105, Carbon Dioxide 30, Anion Gap 9.3, BUN 19, Creatinine 1.10, Estimated Creat Clear 95, Estimated GFR 74, Est GFR ( Amer) 90, Glucose 118 H, Calcium 8.2 L I & O for Last 24 hours: Intake & Output 03/23/20 03/24/20 03/25/20 03/26/20 11:59 11:59 11:59 11:59 Intake Total 470 / 470 Balance 470 / 470 Weight 166 lb 8 oz Microbiology Reports for the Last 24 Hours: Microbiology 03/25/20 15:00 Nasopharyngeal Coronavirus COVID-19 PCR - Final Narrative: Alert, oriented, pleasant, talkative. Leg is swollen, may be a little less red than yesterday afternoon. But certainly ammonia still operator. Distal calf is not swollen. Cardiopulmonary assessment unremarkable. Neurologically intact, ENT exam clear Assessment and Plan (1) Abscess Status: Acute Category: Medical Code(s): L02.91 - Cutaneous abscess, unspecified (2) Cellulitis of thigh Status: Acute Category: Medical Code(s): L03.119 - Cellulitis of unspecified part of limb - Assessment and plan all Dx Assessment and Plan for all problems:: Official CT report pending. Agree with surgical recommendations for Ortho consult to make sure were not dealing with compartment syndrome. Continue antibiotics.
--- NOTE | 2020-03-26 08:42 | HMH.GSCON ---
*Admission Date: 03/25/20 *Reason for consult:: Left medial thigh cellulitis/abscess *History of present illness: This is a 39-year-old gentleman who was readmitted after recent short hospital stay for treatment of left medial thigh cellulitis/possible developing abscess. Upon discharge he noted worsening of symptomatology and the decision was made for readmission. Please see HPI from admission H&P forwarded below. Forwarded from admission H&P: 39-year-old extremely active male who was admitted to the hospital last week with redness and swelling of the left thigh and diagnosed with cellulitis, CT scan of femur showed developing abscess within the left adductor longus muscle of the thigh, treated with intravenous daptomycin and clindamycin and did well and was discharged with p.o. clindamycin and doxycycline 48 hours ago. Unfortunately over the past 24 hours he has worsened, swelling and redness have returned, and in fact have become worse than even his initial presentation. Patient contacted me and I direct admit him to the hospital for IV antibiotics and reimaging of the abscess area. On reflection patient notes that initial treatment with vancomycin in the hospital seemed to result in substantial improvement, and then changed to daptomycin did not seem to have as much symptomatic benefit. He has no other areas of redness or swelling on his skin. He does note that he has had for several months a cystic structure on the left medial thigh that has now vanished. Review of Systems - Constitutional Reports fever(s) - Eyes Denies change in vision - ENT Denies difficulty swallowing - *Cardiovascular Denies chest pain - *Respiratory Denies cough - *Gastrointestinal Denies abdominal pain - *Genitourinary Denies difficulty urinating - *Musculoskeletal Reports joint pain - Integumentary/Breasts Reports redness - *Neurologic Denies abnormal movements - Psychiatric Denies anxiety - Endocrine Denies cold intolerance - Hematologic/Lymphatic Denies easy bleeding - Allergic/Immunologic Denies wheezing [facility] History Medical History: Reports:: Hyperlipidemia, Hypertension Denies:: Cancer, Diabetes Mellitus Type 1, Diabetes Mellitus Type 2, MRSA *Have you ever received a pneumonia vaccine?: No *Have you received a flu vaccine this season?: No Other Surgeries: Yes: Cholecystectomy Amputation: No Fractures: No - *Social History Smoking Status: Current every day smoker Tobacco Type: cigarettes # Packs/Day (cigarettes): 1 #Yrs smoked (if former smoker): 20 Alcohol Intake: current Alcohol Intake Frequency:: holidays/special occasions only Substance Use Type: denies use *Occupational Status:: employed Housing: house Household Members: spouse *Travel in the last 8 weeks: None Family Hx:: Cancer, Hyperlipidemia, Hypertension, Kidney Disease Meds Home Medications Medication Instructions Recorded Confirmed Type atorvastatin 40 mg tablet 40 mg PO DAILY 06/29/18 03/25/20 History pantoprazole 40 mg tablet,delayed 40 mg PO DAILY 06/29/18 03/25/20 History release tamsulosin 0.4 mg capsule 0.4 mg PO DAILY 06/29/18 03/25/20 History Metoprolol Tartrate [Lopressor 25 mg PO DAILY 03/20/20 03/25/20 History 25mg tablet] Docusate Sodium 100 mg pe PO DAILY 03/25/20 03/25/20 History Doxycycline Hyclate [Doxycycline 100 mg PO BID 03/25/20 03/25/20 History 100mg Capsule] Ketorolac Tromethamine [Toradol 10 mg PO Q6H 03/25/20 03/25/20 History 10mg tablet] clindamycin HCL [Clindamycin HCl] 300 mg PO Q6H 03/25/20 03/25/20 History Allergies Allergy/AdvReac Type Severity Reaction Status Date / Time No Known Allergies Allergy Unverified 06/29/18 11:26 Exam Vital signs and Labs for Last 24 Hours: Temp Pulse Resp BP Pulse Ox 98.2 F 89 18 113/60 98 03/26/20 08:00 03/26/20 08:00 03/26/20 08:00 03/26/20 08:00 03/26/20 08:00 Laboratory Results - last 24 hr 03/25/20 15:20: WBC 9
--- NOTE | 2020-03-26 12:42 | MR_ITS ---
PROCEDURE: MR FEMUR LT WO/W CON CLINICAL INDICATION: POSSIBLE THIGH ABSCESS Possible thigh abscess. Redness and swelling on the medial aspect of the thigh x1 week. Fever and pain. COMPARISON: MR MR HIP LT WO/W CON from 03/26/2020 TECHNIQUE: Routine multiplanar multi echo sequences are performed prior to and following the IV administration of 15 cc ProHance. FINDINGS: There is extensive edema throughout the medial superficial soft tissues and the abductor muscles which also involves the medial aspect of the quadriceps. There is loss of the normal architecture of a muscle within the medial compartment. There is central low density in this muscle which could represent a developing abscess which is not organized, however, a developing area of necrosis cannot be excluded. There is enhancement in the adjacent portions of the abductor musculature. There is spotty scattered edema and enhancement within the gluteal musculature bilaterally. There is no hip joint effusion. There is no involvement of the underlying bony structures. IMPRESSION: Severe left thigh infection involving the medial soft tissues and musculature without organized abscess or visible gas. Developing abscess or developing area of necrosis may be present. A component of compartment syndrome may be present. Dictated by: Kassie Moraes 03/27/2020 09:45 Kassie Moraes in [place] 03/27/2020 09:45
--- NOTE | 2020-03-26 12:42 | MR_ITS ---
PROCEDURE: MR HIP LT WO/W CON CLINICAL INDICATION: POSSIBLE THIGH ABSCESS Redness and swelling on the medial aspect of the thigh x1 week. Fever and pain. COMPARISON: No exams were available for comparison TECHNIQUE: Routine multiplanar multi echo sequences are performed without gadolinium enhancement. 15 cc ProHance was administered intravenously following acquisition of noncontrast images. FINDINGS: There is no right or left hip joint effusion. There is edema within the abductor musculature. There is fluid at the fascial planes. Fluid surrounds there is extensive fluid within the overlying soft tissues. An elongated fluid collection is developing in the deep portion of the abductor musculature visible on axial inversion study series 3 images 25 through 28. correlate clinically to assess for developing compartment syndrome. There is scattered edema of in the gluteal muscles posteriorly. IMPRESSION: Extensive edema affecting multiple muscles with fluid developing along the fascial layers. Small elongated fluid collection measuring and 1.2 x 0.4 by 1.7 centimeters which could represent a developing abscess. Correlate clinically to exclude developing compartment syndrome. Dictated by: Kassie Moraes 03/27/2020 08:20 Kassie Moraes in OV 03/27/2020 08:21
--- NOTE | 2020-03-26 13:05 | HMH.ORTHOCON ---
*Admission Date: 03/25/20 *Reason for consult:: L thigh pain, swelling; fevers *History of present illness: 39-year-old gentleman admitted for left thigh pain, redness and fevers. He recently had a short hospital stay for the same complaint, after which his symptoms dramatically improved with IV antibiotics. He began noticing redness and pain in the thigh around 6 days ago. He denies any preceding injuries, no cuts or scrapes, no pimples or ingrown hairs. No recent illnesses, no recent dental work. No history of autoimmune disease, no cancer history, no immunosuppressant medications. No recent tattoos or shaving in this region. His first hospitalization was treated with intravenous daptomycin and clindamycin, which significantly improved his redness and swelling. CT scan at that time was concerning for a possible developing abscess within the left abductor longus muscle. He was discharged home on clindamycin and doxycycline, but over the following 24 hours his symptoms return in became worse in severity than they were originally. He had fevers at home reaching 104 degrees, documented as 103 on arrival to the hospital. He denies any chest pain or shortness of breath, no abdominal pain. He has a history of prostate issues and has had bouts of prostatitis in the past, most recently in January 2020. This was treated with oral antibiotics. He reports pain in the left hip and thigh, with redness on the inner aspect of the thigh. No current scrotal swelling or erythema, no penile discharge. He is currently under several blankets and shivering, reporting chills. Blood cultures taken, pending. [facility] History I have reviewed the patient's past medical history: Yes Medical History: Reports:: Hyperlipidemia, Hypertension Denies:: Cancer, Diabetes Mellitus Type 1, Diabetes Mellitus Type 2, MRSA *Have you ever received a pneumonia vaccine?: No *Have you received a flu vaccine this season?: No Other Surgeries: Yes: Cholecystectomy Amputation: No Fractures: No - *Social History Smoking Status: Current every day smoker Tobacco Type: cigarettes # Packs/Day (cigarettes): 1 #Yrs smoked (if former smoker): 20 Alcohol Intake: current Alcohol Intake Frequency:: holidays/special occasions only Substance Use Type: denies use *Occupational Status:: employed Housing: house Household Members: spouse *Travel in the last 8 weeks: None Family Hx:: Cancer, Hyperlipidemia, Hypertension, Kidney Disease Review of Systems - Review of Systems Review of systems:: pertinent systems reviewed and negative unless documented below - Constitutional Reports chills, Reports fever(s) - Eyes Denies blurry vision - ENT Denies dental pain, Denies sinus pressure, Denies throat swelling - *Cardiovascular Denies chest pain, Denies shortness of breath - *Respiratory Denies shortness of breath - *Gastrointestinal Denies abdominal pain - *Genitourinary Reports difficulty urinating, Reports scrotal swelling, Denies blood in urine, Denies penile discharge - *Musculoskeletal Reports joint pain - Integumentary/Breasts Reports redness - *Neurologic Denies abnormal movements, Denies dizziness, Denies localized weakness, Denies loss of vision Meds Home Medications Medication Instructions Recorded Confirmed Type atorvastatin 40 mg tablet 40 mg PO DAILY 06/29/18 03/25/20 History pantoprazole 40 mg tablet,delayed 40 mg PO DAILY 06/29/18 03/25/20 History release tamsulosin 0.4 mg capsule 0.4 mg PO DAILY 06/29/18 03/25/20 History Metoprolol Tartrate [Lopressor 25 mg PO DAILY 03/20/20 03/25/20 History 25mg tablet] Docusate Sodium 100 mg PO DAILY 03/25/20 03/26/20 History Doxycycline Hyclate [Doxycycline 100 mg PO BID 03/25/20 03/25/20 History 100mg Capsule] Ketorolac Tromethamine [Toradol 10 mg PO Q6H 03/25/20 03/25/20 History 10mg tablet] clindamycin HCL [Clindamycin HCl] 300 mg PO Q6H 03/25/20 03/25/20 History Allergies Allergy/Ad
[2020-03-26 17:34] LABS: Microscopic, Urine URINE MICROSCOPIC (MICROSCOPIC)
[2020-03-26 17:45] LABS: Appearance,Urine CLEAR (Clear); Bilirubin,Urine Negative (Negative); Blood, Urine TRACE-I (Negative); Color,Urine DK YELLOW (Yellow); Glucose,Urine (UA) Negative (Negative); Ketones,Urine Negative (Negative); Leukocyte Esterase,Urine Negative (Negative); Nitrate,Urine Negative (Negative); Protein,Urine 1+ (Negative); Specific Gravity, Urine >= 1.030 (1.005-1.030); Urobilinogen,Urine 0.2 EU/dl (0.2)
[2020-03-26 18:16] LABS: Bacteria,Urine 3+ /lpf; WBC,Urine Occasional #/hpf (0-3)
--- NOTE | 2020-03-26 18:44 | PC.NURSE ---
PT IS SITTING UP IN THE CHAIR. ALERT AND ORIENTED X4. PT HAS HAS SOME ISSUES WITH PAIN T/O THE SHIFT. PT STATED EARLY THIS AFTERNOON BEFORE HE WENT DOWN FOR MRI THE TORADOL HAS BEEN HELPING WITH HIS FEVERS BUT HAS NOT TOUCHED THE PAIN. WHEN PT WAS DOWN FOR MRI THE TECH CALLED UP AND STATED PT STILL HAD 35 MIN LEFT AND HE WAS IN EXCRUCIATING PAIN. PCP WAS ON THE FLOOR AT THE TIME AND ORDERED MORPHINE 2 MG. PT RECEIVED A DOSE OF MORPHINE WHILE IN THE MRI FROM INSTRUCTIONAL CONSULTANT. PT ARRIVED BACK TO THE FLOOR AND STATED THE MORPHINE LASTED FOR ABOUT 5 MIN AND THE PAIN WAS BACK. WHEN PT WAS SITTING UP IN THE CHAIR HE WAS CONCERNED B/C IT LOOKED AND FELT LIKE THE SWELLING IN HIS LEG WAS GETTING WORSE. NOTIFIED PCP AND HE ORDERED K PAD AROUND THE LEG, ELEVATION AND MONITOR FOOT PULSES. WAS ALSO NOTIFIED AND SHE SUGGESTED ELEVATION/COMPRESSION AND ALTERNATING ICE AND HEAT. PT'S LEFT THIGH IS WRAPPED WITH AN ELBERT WRAP. ELEVATED WITH 2 PILLOWS AND ICE APPLIED. KPAD AT BEDSIDE. 2+ PALPABLE PULSES. PT STATED THE ELEVATION HAS REALLY HELPED WITH GETTING PRESSURE OFF THE BACK OF HIS THIGH. URINE SAMPLE SENT DOWN TO LAB. REPORT HANDOFF TO ERICK PACE RN.
[2020-03-27 02:42] VITALS: TEMP 39.5
[2020-03-27 04:00] VITALS: BP 105/51; PULSE 100; RESP 18; TEMP 36.7; O2SAT 94
--- NOTE | 2020-03-27 04:03 | PC.NURSE ---
A&OX4. PT HAS TOLERATED RA WELL THROUGHOUT SHIFT. RESPIRATIONS REGULAR AND UNLABORED. LUNG SOUNDS BILATERALLY CLEAR. NO COUGH NOTED. 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 ACTIVE BOWEL SOUNDS HEARD IN ALL 4 QUADRANTS. SOFT AND NONTENDER ABDOMEN. NO BM REPORTED. PT VOIDS PER URINAL. CLEAR YELLOW URINE NOTED. +2 PULSES NOTED THROUGHOUT. SWELLING, REDNESS, AND WARMTH NOTED TO L LEG. LEG HAS BEEN ELEVATED THROUGHOUT SHIFT. PT HAD AN ELBERT WRAP AT THE BEGINNING OF SHIFT BUT TOOK IT OFF DURING THE NIGHT BECAUSE HE STATED IT WAS BOTHERING HIM. HE SAID THE SWELLING WENT AROUND THE WRAP AND CAUSED IT TO MAKE INTENTIONS IN HIS SKIN. WE HAVE ALTERNATED HEAT AND ICE PER THE ORDERS AND PT STATED THE ICE SEEMS TO HELP BETTER AND THE WARMTH SEEMS TO INCREASE THE SWELLING SOME. SINCE THEN, WE HAVE JUST USED ICE. SWELLING, REDNESS, AND WARMTH HAS SPREAD FROM THE BEGINNING OF SHIFT TO NOW IT HAS MOVED FURTHER DOWN THE AFFECTED EXTREMITY. PEDAL PULSES HAVE BEEN CLOSELY MONITORED THROUGHOUT SHIFT WITH NO CHANGES NOTED. WILL CONTINUE TO MONITOR. PT STATES THE SWELLING IS MOVING INTO HIS HIPS WELL. DENIES ANY SWELLING OR TENDERNESS IN ABDOMEN AND GENITAL AREA. THIS NURSE HAS OFFERED TO CALL THE DR SEVERAL TIMES IF IT BECOMES WORSE AND PT HAS STATED NO HE WILL BE FINE UNTIL MORNING. PT HAS REPORTED PAIN SEVERAL TIMES. HE HAS RECEIVED MORPHINE TWICE, TORADOL TWICE, AND TYLENOL ONCE. PT STATED THE PAIN EASES. STATES UPPER THIGH IS BECOMING VERY TIGHT AND SHORTS ARE BECOMING TIGHT IN THE LEG. STATES LEG IS TENDER TO TOUCH AND HARD TO LIFT DUE TO PAIN. PT HAS RECEIVED VANCOMYCIN AND AMPICILLIN THIS SHIFT AND TOLERATED WELL. PT HASN'T SLEPT MUCH THIS SHIFT. THE LONGEST TIME ASLEEP NOTED TO BE MAYBE 2.5 HOURS. PT SPIKED A FEVER ONCE THIS SHIFT. NS INFUSING AT 150ML/HR. BED IN LOWEST POSITION. CALL LIGHT WITHIN REACH. VSS. WILL CONTINUE TO MONITOR. UPDATED PICTURE OF LEG ON THE CHART.
--- NOTE | 2020-03-27 04:35 | PC.WOUNDNOTE ---
Wound Location: LLE Length: Width: Depth: Undermining Y/N: Tunneling cm: Granulation %: Slough/necrotic tissue %: Inflammation/swelling Y/N: Y Pain and/or tenderness Y/N: Y Exudate: Serosanguinous Sanguinous Serosanguinous Seropurulent Purulent Color: Clear [place] Cloudy/milky [place] Red Green Yellow Brown Gut[place] Blue Consistency: Thick Thin Amount: None Scant Small Moderate Large Odor Y/N: N
--- NOTE | 2020-03-27 04:36 | PC.WOUNDNOTE ---
Wound Location: LLE Length: Width: Depth: Undermining Y/N: N Tunneling cm: Granulation %: Slough/necrotic tissue %: Inflammation/swelling Y/N: Y Pain and/or tenderness Y/N: Y Exudate: Serosanguinous Sanguinous Serosanguinous Seropurulent Purulent Color: Clear [place] Cloudy/milky [place] Red Green Yellow Brown Gutierrez Blue Consistency: Thick Thin Amount: None Scant Small Moderate Large Odor Y/N: N
[2020-03-27 05:00] VITALS: BMI 32.4
--- NOTE | 2020-03-27 06:48 | P.PN_ITS ---
Subjective Narrative: Patient is currently resting. Per nursing staff the cellulitic component has progressed more distally. Progress Note: A&P (1) Abscess Status: Acute (2) Cellulitis of thigh Status: Acute Assessment and plan: Secondary to overall depth of affected tissue (deep musculature/fascia), overall surgical management will be deferred to the orthopedic service. Exam Vital signs and Labs for Last 24 Hours: Temp Pulse Resp BP Pulse Ox 98.1 F 100 H 18 105/51 L 94 L 03/27/20 04:00 03/27/20 04:00 03/27/20 04:00 03/27/20 04:00 03/27/20 04:00 Laboratory Results - last 24 hr 03/26/20 05:55: WBC 8.5, RBC 4.36 L, Hgb 13.4 L, Hct 40.7 L, MCV 93.3, MCH 30.7, MCHC 32.9, RDW 13.5, Plt Count 262, MPV 7.6, Neut % (Auto) 77.4, Lymph % (Auto) 11.5, [place] % (Auto) 6.1, Eos % (Auto) 4.7, Baso % (Auto) 0.3, Neut # (Auto) 6.6, Lymph # (Auto) 1.0, [place] # (Auto) 0.5, Eos # (Auto) 0.4, Baso # (Auto) 0.0 03/26/20 05:55: Sodium 140, Potassium 4.3, Chloride 105, Carbon Dioxide 30, Anion Gap 9.3, BUN 19, Creatinine 1.10, Estimated Creat Clear 95, Estimated GFR 74, Est GFR ( Amer) 90, Glucose 118 H, Calcium 8.2 L 03/26/20 17:15: Urine Color Dk yellow, Urine Appearance Clear, Urine pH 6.0, Ur Specific [place] >= 1.030, Urine Protein 1+, Urine Glucose (UA) Negative, Urine Ketones Negative, Urine Blood Trace-i, Urine Nitrate Negative, Urine Bilirubin Negative, Urine Urobilinogen 0.2, Ur Leukocyte Esterase Negative, Urine RBC None, Urine WBC Occasional, Ur Squamous Epith Cells None, Urine Bacteria 3+ I & O for Last 24 hours: Intake & Output 03/24/20 03/25/20 03/26/20 03/27/20 11:59 11:59 11:59 11:59 Intake Total 470 / 470 3850 / 3850 Output Total 150 / 150 775 / 775 Balance 320 / 320 3075 / 3075 Weight 166 lb 8 oz - Constitutional no acute distress - *Routine Respiratory Exam Absent: respiratory distress
[2020-03-27 07:32] LABS: Chloride 107 mmol/L (98-107)
[2020-03-27 07:33] LABS: Potassium 4.5 mmoL/L (3.5-5.1); Sodium 137 mmol/L (136-145)
[2020-03-27 07:35] LABS: Alanine Aminotransferase 136 U/L (12-78); Albumin Level 2.8 g/dl (3.5-5.0); Alkaline Phosphatase 61 U/L (38-126); Anion Gap 5.5 mEq/L (5-15); Aspartate Amino Transferase 156 U/L (17-59); Bilirubin,Total 0.3 mg/dl (0.2-1.3); Blood Urea Nitrogen 14 mg/dl (9-20); Carbon Dioxide 29 mmol/L (22.0-30.0); Creatinine Clearance Estimated 111 mL/min (50-200); Estimated Glomerular Filt Rate 83 ml/min (>60); GFR (African American) 100 ML/MIN (>60); Globulin 2.9 g/dL (1.3-3.2); Total Protein,Serum 5.7 g/dl (6.3-8.2)
[2020-03-27 07:36] LABS: Basophils % 0.2 % (0.1-2.0); Calcium 7.8 mg/dl (8.4-10.2); Eosinophils # 0.3 K/mm3 (0.0-0.4); Glucose 124 mg/dl (74-100); Hematocrit 41.5 % (42.0-52.0); Hemoglobin 13.6 g/dL (14.1-18.0); Lymphocytes % 11.9 % (10-50); Mean Corpuscular HGB Conc 32.8 g/dL (31.8-35.4); Mean Corpuscular Hemoglobin 30.3 pg (27.0-31.2); Mean Corpuscular Volume 92.3 fl (80-94); Mean Platelet Volume 7.8 fl (7.4-10.4); Monocytes # 0.3 K/mm3 (0.1-1.0); Monocytes % 3.5 % (1.7-9.3); Neutrophils # 6.4 K/mm3 (1.8-7.8); Neutrophils % 80.4 % (37.0-80.0); Platelet Count 247 K/mm3 (142-424); Red Blood Count 4.49 M/mm3 (4.60-6.20); Red Cell Distribution Width 13.4 % (11.5-17.5)
[2020-03-27 07:54] VITALS: BP 92/54; PULSE 84; RESP 16; TEMP 36.5; O2SAT 98
[2020-03-27 08:03] LABS: Chloride 107 mmol/L (98-107); Potassium 4.5 mmoL/L (3.5-5.1); Sodium 137 mmol/L (136-145)
[2020-03-27 08:06] LABS: Anion Gap 6.5 mEq/L (5-15); Blood Urea Nitrogen 15 mg/dl (9-20); Carbon Dioxide 28 mmol/L (22.0-30.0); Creatinine Clearance Estimated 111 mL/min (50-200); Estimated Glomerular Filt Rate 83 ml/min (>60); GFR (African American) 100 ML/MIN (>60)
[2020-03-27 08:07] LABS: Calcium 7.9 mg/dl (8.4-10.2); Glucose 123 mg/dl (74-100)
--- NOTE | 2020-03-27 09:26 | HMH.ORTHPN ---
Subjective Date: 03/27/20 Time: 08:30 Principal diagnosis: L thigh myofasciits, cellulitis Interval history: No acute events reported overnight, the patient spiked another fever to 103. He reports increased pain after his MRI. This morning the redness, swelling in the left thigh is slightly greater despite being on IV vancomycin, Levaquin and Unasyn overnight. Sensation and pulses remain intact to the left lower extremity. PN: Obj Ex Vital signs: Temp Pulse Resp BP Pulse Ox 97.7 F 84 16 92/54 L 98 03/27/20 07:54 03/27/20 07:54 03/27/20 07:54 03/27/20 07:54 03/27/20 07:54 - Constitutional no acute distress - Routine HEENT Exam Head: Present: normocephalic Eye: Present: EOMI ENT: Present: mucous membranes moist - Routine Neck Exam Present: trachea midline - Routine Respiratory Exam Absent: respiratory distress, wheezes - Routine Cardiovascular Exam Present: RRR - Routine Abdominal Exam Present: soft. Absent: tenderness - Routine Extremities Exam Comments: L thigh mildly erythematous medially, tender to touch; no palpable masses, no induration or fluctuance no tenderness L knee, no effusion or erythema, FROM L hip mildly tender over groin, ROM produces pain in hip no scrotal/inguinal masses, swelling or erythema +DF/PF/EHL LLE SILT distally LLE L calf soft, non-tender palpable pedal pulses LLE, foot pink/warm - Routine Skin Exam Present: intact, erythema, warm. Absent: ecchymosis - Routine Neurological Exam Present: alert, oriented X3, moving all extremities, normal tone, vision grossly intact, hearing grossly intact, normal speech. Absent: sensory deficit, motor deficit, altered mental status - Routine Psychiatric Exam Present: normal affect Progress Note: A&P (1) Abscess Status: Acute (2) Cellulitis of thigh Status: Acute Assessment and Plan for All Diagnoses:: 39yo M with L thigh erythema, swelling; cellulitis + myofasciitis -- the swelling is slightly worse today, erythema not improved; pain increasing -- patient continues to worsen despite treatment with 5 previous antibiotics -- currently on IV vancomycin, unasyn, levoquin -- I do not believe surgical intervention warranted at the moment, but if he continues to worsen, fasciotomy with washout may be indicated. Transfer to a higher level of care for ID consultation may also be prudent. Will continue to follow closely.
--- NOTE | 2020-03-27 10:02 | HMH.DCSUM ---
General - General Admission date:: 03/25/20 Discharge date: 03/27/20 HPI HPI: 39-year-old extremely active male who was admitted to the hospital last week with redness and swelling of the left thigh and diagnosed with cellulitis, CT scan of femur showed developing abscess within the left adductor longus muscle of the thigh, treated with intravenous daptomycin and clindamycin and did well and was discharged with p.o. clindamycin and doxycycline 48 hours ago. Unfortunately over the past 24 hours he has worsened, swelling and redness have returned, and in fact have become worse than even his initial presentation. Patient contacted me and I direct admit him to the hospital for IV antibiotics and reimaging of the abscess area. On reflection patient notes that initial treatment with vancomycin in the hospital seemed to result in substantial improvement, and then changed to daptomycin did not seem to have as much symptomatic benefit. He has no other areas of redness or swelling on his skin. He does note that he has had for several months a cystic structure on the left medial thigh that has now vanished. Hospital Course Hospital Course: Pleasant 39-year-old man originally admitted on 03/21 for concern for abscess in his left medial thigh. Was initiated on antibiotics and responded well with improvement in erythema and swelling and pain. Transition to oral antibiotics and discharged on Friday 03/24 to continue outpatient management. Unfortunately had worsening swelling and pain in his leg and return to the you the hospital on Thursday. Was directly admitted started on broad-spectrum antibiotics including vancomycin, Unasyn, Levaquin. Has continued to have progression of swelling in his thigh, left thigh significantly more swollen over the past 24 hours compared to the right. Increased warmth, tenderness, pain in his left gluteus. Imaging performed with MRI showing significant inflammation and swelling in multiple compartments of his thigh muscles, worse in the medial compartment. Concern for early necrotizing fasciitis. Given 's bed capacity constraints, patient will be transferred to their ER for more rapid assessment at their request. Of note, past medical history positive for hypertension controlled on metoprolol. Also positive for recurring chronic prostatitis, recently seen by his urologist and initiated on long-term antibiotics. This will likely need to be addressed prior to getting home. Given clinical worsening of infection, failure of IV antibiotics, was contacted for surgical consult. Patient accepted by [facility] for further management of suspected early excising fasciitis. We are appreciative of their assistance in caring for this patient. At this time his LRINEC score is a 5. Objective Vital signs: Temp Pulse Resp BP Pulse Ox 97.7 F 84 16 92/54 L 98 03/27/20 07:54 03/27/20 07:54 03/27/20 07:54 03/27/20 07:54 03/27/20 07:54 mild distress, obese - *Routine HEENT Exam Head: Present: normocephalic Eye: Present: EOMI, PERRL ENT: Present: mucous membranes moist - *Routine Neck Exam Present: supple - *Routine Respiratory Exam Present: CTA bilaterally - *Routine Cardiovascular Exam Present: RRR - *Routine Abdominal Exam Present: soft, normoactive bowel sounds. Absent: tenderness - *Routine Extremities Exam Absent: cyanosis, clubbing, edema Comments: Left thigh with significant increase in warmth and swelling over exam from yesterday. Thigh tender to knee. pain with minimal movement of left hip. TTP in left gluteus. - *Routine Skin Exam Present: warm. Absent: rash - *Routine Neurological Exam Present: alert, oriented X3. Absent: sensory deficit - Routine Psychiatric Exam Present: normal affect Results Labs on day of discharge: Labs from last 24 hours 03/27/20 03/27/20 03/27/20 06:59 06:59 06:59 WBC 8.0 RBC 4.49 L Hgb 13.6 L Hct 41.5 L MCV
--- NOTE | 2020-03-27 12:32 | PC.NURSE ---
PT IS BEING TRANSFERRED TO THE EMERGENCY ROOM AT [facility]. PT WAS EXCEPTED BY [facility]. REPORT CALLED TO NURSE IN THE ED. PT RECEIVED A DOSE OF MORPHINE FOR PAIN BEFORE AMBULANCE ARRIVED TO TRANSPORT PT TO .
== END 2020-03-27 12:38 | disposition short-term general hospital (02) | DRG 602 ==
PROVIDERS: Orthopaedic Surgery; Admitting Provider Internal Medicine Adolescent Medicine; PCP Internal Medicine Adolescent Medicine; Visit Provider Internal Medicine Adolescent Medicine
DX: L03.116 Cellulitis of left lower limb (principal); M72.6 Necrotizing fasciitis; I10 Essential (primary) hypertension; Z72.0 Tobacco use; Z79.899 Other long term (current) drug therapy
CPT/HCPCS: 36415; 73701; 73720; 73723; 80048; 80053; 81001; 85025; 85651; 86140; 87040; 87086; A9576; G0378; J1956; J3370; Q9967; U0003

== ENCOUNTER → 2020-10-23 18:06 | Outpatient (CLI) | payer OTHER, SELFPAY ==
[2020-10-23 18:56] LABS: Alanine Aminotransferase 21 U/L (12-78); Albumin Level 4.5 g/dl (3.5-5.0); Albumin/Globulin Ratio 1.7 (1.1-1.8); Alkaline Phosphatase 65 U/L (38-126); Anion Gap 13.6 mEq/L (5-15); Aspartate Amino Transferase 31 U/L (17-59); Bilirubin,Total 0.4 mg/dl (0.2-1.3); Blood Urea Nitrogen 14 mg/dl (9-20); Calcium 9.6 mg/dl (8.4-10.2); Carbon Dioxide 29 mmol/L (22.0-30.0); Chloride 102 mmol/L (98-107); Cholesterol 154 mg/dl (140-200); Estimated Glomerular Filt Rate 107 ml/min (>60); GFR (African American) 129 ML/MIN (>60); Globulin 2.7 g/dL (1.3-3.2); Glucose 101 mg/dl (74-100); HDL Cholesterol 51 mg/dl (40-60); Potassium 4.6 mmoL/L (3.5-5.1); Sodium 140 mmol/L (136-145); Total Protein,Serum 7.2 g/dl (6.3-8.2); Triglycerides 123 mg/dl (30-150); VLDL Cholesterol 25 mg/dL (0-40)
[2020-10-23 19:07] LABS: Direct LDL Cholesterol 81.65 mg/dL (100-129)
[2020-10-23 19:26] LABS: Prostate Specific Ag, Diagnost 0.541 ng/ml (0.0-4.0)
== END ==
PROVIDERS: Visit Provider Nurse Practitioner Family
DX: Z00.00 Encounter for general adult medical examination without abnormal findings (principal); I10 Essential (primary) hypertension; E78.2 Mixed hyperlipidemia; Z12.5 Encounter for screening for malignant neoplasm of prostate
CPT/HCPCS: 80053; 80061; 84153

== ENCOUNTER 2022-11-24 16:24 | Emergency (ER) | payer OTHER, SELFPAY ==
[2022-11-24 16:35] VITALS: BP 151/100; PULSE 80; RESP 20; TEMP 36.7; O2SAT 97; BMI 33.8
--- NOTE | 2022-11-24 16:40 | EXP.UTC ---
Discharge Plan Disposition Patient Disposition: Home, Self-Care Condition: Good Prescriptions Prescriptions: New clindamycin HCl 300 mg capsule 300 mg PO Q8H Qty: 30 0RF ibuprofen [IBU] 800 mg tablet 800 mg PO Q8HP PRN (Reason: Moderate Pain) Qty: 30 0RF No Action atorvastatin 40 MG tablet 40 mg PO DAILY 0RF tamsulosin 0.4 MG capsule 0.4 mg PO DAILY 0RF pantoprazole 40 MG tablet,delayed release (DR/EC) 40 mg PO DAILY 0RF metoprolol tartrate 25 MG tablet 25 mg PO DAILY 0RF Referrals Follow up/Referrals: Duncan Morse MD [Primary Care Provider] - See instructions Activity Restrictions/Add. Instructions Additional Instructions/Restrictions: Take tylenol or ibuprofen for pain or fever. I sent in a prescription for ibuprofen to your pharmacy. Take the medications as directed. Follow up with your regular doctor. Follow up with your dentist. GO TO THE ER FOR ANY WORSENING SYMPTOMS Clinical Impressions Clinical Impression: Dental abscess Instructions Patient Instructions: Tooth Abscess, DI for Tooth Abscess Discharge ED Provider: Milton Kearney [facility] [place] General Stated complaint: swollen right side jaw Time Seen by Provider: 11/24/22 16:40 History of Present Illness Provider Complaint: He states that for the past 3 days he has had worsening right lower dental pain and gum swelling. He has multiple decayed and broken teeth in that area. Related Data Previous Rx's Medication Instructions Recorded atorvastatin 40 mg tablet 40 mg PO DAILY 03/27/20 metoprolol tartrate 25 mg tablet 25 mg PO DAILY 03/27/20 pantoprazole 40 mg tablet,delayed 40 mg PO DAILY 03/27/20 release tamsulosin 0.4 mg capsule 0.4 mg PO DAILY 03/27/20 clindamycin HCl 300 mg capsule 300 mg PO Q8H #30 caps 11/24/22 ibuprofen 800 mg tablet (IBU) 800 mg PO Q8HP PRN Moderate Pain 11/24/22 #30 tabs Allergies Allergy/AdvReac Type Severity Reaction Status Date / Time Penicillins Allergy Verified 11/24/22 16:47 [facility] Disclaimer: The information contained in this section may have been updated after the patient was seen, as this information can be updated by other users. Medical History (Updated 11/24/22 @ 17:19 by Milton Kearney APRN) History of gastroesophageal reflux (GERD) Hyperlipidemia Hypertension Surgical History (Updated 11/24/22 @ 16:45 by Bharti Simons RN) History of cholecystectomy Social History Smoking Status: Current every day smoker tobacco type: cigarettes packs per day: 1 alcohol intake: current substance use type: denies use current occupational status: employed Travel in the last 8 weeks: None household members: spouse housing: house caffeine: Yes ROS Obtained: Yes All systems reviewed & no additional complaints except as documented Constitutional Constitutional: Denies chills and Denies fever(s) Eyes Eyes: Denies eye discharge ENT Ears, Nose, Mouth, and Throat: Reports as per HPI Cardiovascular Cardiovascular: Denies chest pain Respiratory Respiratory: Denies chest congestion and Reports cough Gastrointestinal Gastrointestingal: Reports nausea; Denies abdominal pain, constipation, cramping, diarrhea or vomiting Musculoskeletal Musculoskeletal: Denies arthralgias Integumentary/Breasts Skin/Breast: Denies rash Neurologic Neurologic: Denies paresthesias Physical Exam General General appearance: alert and in no apparent distress Head Head exam: atraumatic, normocephalic and normal inspection Eye Eye exam: Present normal appearance, PERRL and EOMI ENT ENT exam: Present mucous membranes moist, TM's normal bilaterally and normal external ear exam Expanded ENT Exam Nose exam: Absent sinus tenderness Nasal speculum exam: Bilateral: normal Mouth exam: Present normal external inspection; Absent drooling Teeth exam: Present dental caries, fractured tooth #, dental tenderness # and gingival swelling Throat exam: Present nor
[2022-11-24 17:20] VITALS: BP 151/100; PULSE 80; RESP 20; TEMP 36.7; O2SAT 97
== END 2022-11-24 17:22 | disposition home or self-care (01) ==
PROVIDERS: Emergency Provider Nurse Practitioner Family; PCP Internal Medicine Adolescent Medicine
DX: K04.7 Periapical abscess without sinus (principal); F17.210 Nicotine dependence, cigarettes, uncomplicated; I10 Essential (primary) hypertension; E78.5 Hyperlipidemia, unspecified
CPT/HCPCS: 99204; 99212; G0463

== ENCOUNTER 2024-03-23 07:13 | Outpatient (CLI) | payer OTHER, SELFPAY ==
--- NOTE | 2024-03-23 07:15 | US_ITS ---
FINAL REPORT TECHNIQUE: Sonographic images of the right upper quadrant were obtained. CLINICAL HISTORY: ELEVATED ENZYMES COMPARISON: None FINDINGS: PANCREAS: Obscured by overlying bowel gas. LIVER: There is fatty infiltration of the liver. No intrahepatic biliary ductal dilatation. GALLBLADDER: The gallbladder has been surgically resected. No gallbladder wall thickening or pericholecystic fluid. COMMON DUCT: 2 mm. Normal for age. RIGHT KIDNEY: The right kidney measures 9.2 cm. There is no hydronephrosis, mass, or stone. FREE FLUID: None. IMPRESSION: Prior cholecystectomy. Fatty infiltration of the liver. Reviewed, Interpreted and Dictated by Paulina Matthew MD Transcribed by Mireille Frazier Authenticated and [facility]
== END 2024-03-23 23:59 | disposition home or self-care (01) ==
LOC: RAD 07:13
PROVIDERS: PCP Internal Medicine Adolescent Medicine; Visit Provider Internal Medicine Adolescent Medicine
DX: R74.8 Abnormal levels of other serum enzymes (principal)
CPT/HCPCS: 76705

== ENCOUNTER → 2024-05-04 06:27 | Outpatient (CLI) | payer OTHER, SELFPAY | LOC: SL 06:28 | PROVIDERS: PCP Nurse Practitioner Family; Visit Provider Nurse Practitioner Family | DX: G47.33 Obstructive sleep apnea (adult) (pediatric) (principal); I10 Essential (primary) hypertension; E66.9 Obesity, unspecified | CPT/HCPCS: 95806 ==

== ENCOUNTER 2024-12-10 03:41 | Observation (INO) | payer OTHER, SELFPAY ==
[2024-12-10] VITALS (9 sets, daily range): BP systolic 126–150; BP diastolic 57–100; PULSE 71–108; RESP 12–20; TEMP 36.5–37; O2SAT 96–100; BMI 22.0
--- OUTSIDE RECORDS SUMMARY | 2024-12-10 03:46 | XMS_ITS | Data Portability ---
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 Plan of Treatment Reminders Order Date Submit Date Provider Last Modified By Organization Details Last Modified Time Details Appointments NEW PATIENT UROLOGY 2024 03:15P M GISELA KNOX MD Not available Not available Not available Lab urinalysi s panel, auto 2020 021 [facility], [address], [place], [address], 12/04/2020 13:42:15 urinalysi s panel, auto 2020 021 [facility], [address], [place], [address], 05/14/2020 07:16:02 urinalysi s panel, auto 2020 021 [email or web address] [facility], [address], [address], [place], [address], 04/11/2020 14:03:22 urinalysi s panel, auto 2020 021 [email or web address] [facility], [address], [address], [place], [address], 03/20/2020 13:52:36 Referral None recorded. Procedures None recorded. Surgeries None recorded. Imaging None recorded. Medication Orders cefuroxim e axetil 500 mg tablet 2020 021 [email or web address] [facility], [address], [address], 05/11/2020 14:27:11 nabumeton e 500 mg tablet 2020 021 INTERFACE [facility], [address], [address], 03/20/2020 13:52:56 Patient TargetsNo targets recorded. Patient Instructions Encounter Date Encounter Id Patient Instructions Last Modified By Organization Details Last Modified Time 05/11/2020 [id number] learning about healthy weight [email or web address] Not available 05/14/2020 07:16:02 Reason for Referral None Reported. Results Created Date Observation Date Name Description Value Unit Range Abnormal Flag Note LastModifiedBy Organization Detail LastModifiedTime 12/05/1912/04/2020 urina lysis panel , auto Unknown Analyte Clean Catch Not Available [facility] [address], [place], [address], 12/04/2020 13:17:06 12/05/1912/04/2020 urina lysis panel , auto Unknown Analyte Yellow Not Available [facility] [address], [place], [address], 12/04/2020 13:17:06 12/05/19 21 12/04/2020 urina lysis panel , auto Unknown Analyte Clear Not Available [facility] [address], [place], [address], 12/04/2020 13:17:06 12/05/1912/04/2020 urina lysis panel , auto Unknown Analyte 1.020 Not Available [facility] [address], [place], [address], 12/04/2020 13:17:06 12/05/1912/04/2020 urina lysis panel , auto Unknown Analyte 1.003- 1.035 Not Available [facility] [address], [place], [address], 12/04/2020 13:17:06 12/05/1912/04/2020 urina lysis panel , auto Unknown Analyte 5.0 Not Available [facility] [address], [place], [address], 12/04/2020 13:17:06 12/05/1912/04/2020 urina lysis panel , auto Unknown Analyte 5.0-8. 0 Not Available [facility] [address], [place], [address], 12/04/2020 13:17:06 12/05/1912/04/2020 urina lysis panel , auto Unknown Analyte Negati ve Not Available [facility] [address], [place], [address], 12/04/2020 13:17:06 12/05/19 21 12/04/2020 urina lysis panel , auto Unknown Analyte Negati ve Not Available [facility] [address], [place], [address], 12/04/2020 13:17:06 12/05/1912/04/2020 urina lysis panel , auto Unknown Analyte Negati ve Not Available [facility] [address], [place], [address], 12/04/2020 13:17:06 12/05/1912/04/2020 urina lysis panel , auto Unknown Analyte Negati ve Not Available [facility] [address], [place], [address], 12/04/2020 13:17:06 12/05/1912/04/2020 urina lysis panel , auto Unknown Analyte Negati ve Not Available [facility] [address], [place], [address], 12/04/2020 13:17:06 12/05/1912/04/2020 urina lysis panel , auto Unknown Analyte Negati ve Not Available [facility] [address], [place], [address], 12/04/2020 13:17:06 12/05/1912/04/2020 urina lysis panel , auto Unknown Analyte Normal Not Available [facility] [address], [place], [address], 12/04/2020 13:17:06 12/05/1912/04/2020 urina lysis panel , auto Unknown Analyte Normal Not Available [facility] [address], [place], [address], 12/04/2020 13:17:06 12/05/1912/04/2020 urina lysis panel , auto Unknown Analyte Negati ve Not Available [facility] [address], [place], [address], 12/04/2020 13:17:06 12/05/1912/04/2020 urina lysis panel , auto Unknown Analyte Negati ve Not Available [facility] [address], [place], [address], 12/04/2020 13:17:06 12/05/1912/04/2020 urina lysis panel , auto Unknown Analyte Normal Not Available [facility] [address], [place], [address], 12/04/2020 13:17:06 12/05/1912/04/2020 urina lysis panel , auto Unknown Analyte Normal 1 mg/dl Not Available [facility] [address], [place], [address], 12/04/2020 13:17:06 12/05/1912/04/2020 urina lysis panel , auto Unknown Analyte Negati ve Not Available [facility] [address], [place], [address], 12/04/2020 13:17:06 12/05/1912/04/2020 urina lysis panel , auto Unknown Analyte Negati ve Not Available [facility] [address], [place], [address], 12/04/2020 13:17:06 12/05/19 21 12/04/2020 urina lysis panel , auto Unknown Analyte Negati ve Not Available [facility] [address], [place], [address], 12/04/2020 13:17:06 12/05/19 21 12/04/2020 urina lysis panel , auto Unknown Analyte Negati ve Not Available [facility] [address], [place], [address], 12/04/2020 13:17:06 05/12/19 21 05/11/2020 urina lysis panel , auto Unknown Analyte Clean Catch Not Available [facility] [address], [place], [address], 05/11/2020 14:27:51 05/12/1905/11/2020 urina lysis panel , auto Unknown Analyte Yellow Not Available [facility] [address], [place], [address], 05/11/2020 14:27:51 05/12/19 21 05/11/2020 urina lysis panel , auto Unknown Analyte Clear Not Available [facility] [address], [place], [address], 05/11/2020 14:27:51 05/12/19 21 05/11/2020 urina lysis panel , auto Unknown Analyte 1.020 Not Available [facility] [address], [place], [address], 05/11/2020 14:27:51 04/02/20 21 05/11/2020 urina lysis panel , auto Unknown Analyte 1.003- 1.035 Not Available [facility] [address], [place], [address], 05/11/2020 14:27:51 05/12/19 21 05/11/2020 urina lysis panel , auto Unknown Analyte 5.0 Not Available [facility] [address], [place], [address], 05/11/2020 14:27:51 05/12/1905/11/2020 urina lysis panel , auto Unknown Analyte 5.0-8. 0 Not Available [facility] [address], [place], [address], 05/11/2020 14:27:51 05/12/19 21 05/11/2020 urina lysis panel , auto Unknown Analyte Negati ve Not Available [facility] [address], [place], [address], 05/11/2020 14:27:51 05/12/1905/11/2020 urina lysis panel , auto Unknown Analyte Negati ve Not Available [facility] [address], [place], [address], 05/11/2020 14:27:51 05/12/1905/11/2020 urina lysis panel , auto Unknown Analyte Negati ve Not Available [facility] [address], [place], [address], 05/11/2020 14:27:51 05/12/19 21 05/11/2020 urina lysis panel , auto Unknown Analyte Negati ve Not Available [facility] [address], [place], [address], 05/11/2020 14:27:51 05/12/19 21 05/11/2020 urina lysis panel , auto Unknown Analyte Negati ve Not Available [facility] [address], [place], [address], 05/11/2020 14:27:51 05/12/19 21 05/11/2020 urina lysis panel , auto Unknown Analyte Negati ve Not Available [facility] [address], [place], [address], 05/11/2020 14:27:51 05/12/19 21 05/11/2020 urina lysis panel , auto Unknown Analyte Normal Not Available [facility] [address], [place], [address], 05/11/2020 14:27:51 05/12/19 21 05/11/2020 urina lysis panel , auto Unknown Analyte Normal Not Available [facility] [address], [place], [address], 05/11/2020 14:27:51 05/12/19 21 05/11/2020 urina lysis panel , auto Unknown Analyte Negati ve Not Available [facility] [address], [place], [address], 05/11/2020 14:27:51 05/12/19 21 05/11/2020 urina lysis panel , auto Unknown Analyte Negati ve Not Available [facility] [address], [place], [address], 05/11/2020 14:27:51 05/12/19 21 05/11/2020 urina lysis panel , auto Unknown Analyte Normal Not Available [facility] [address], [place], [address], 05/11/2020 14:27:51 05/12/1905/11/2020 urina lysis panel , auto Unknown Analyte Normal 1 mg/dl Not Available [facility] [address], [place], [address], 05/11/2020 14:27:51 05/12/1905/11/2020 urina lysis panel , auto Unknown Analyte Negati ve Not Available [facility] [address], [place], [address], 05/11/2020 14:27:51 05/12/19 21 05/11/2020 urina lysis panel , auto Unknown Analyte Negati ve Not Available [facility] [address], [place], [address], 05/11/2020 14:27:51 05/12/19 21 05/11/2020 urina lysis panel , auto Unknown Analyte Negati ve Not Available [facility] [address], [place], [address], 05/11/2020 14:27:51 05/12/19 21 05/11/2020 urina lysis panel , auto Unknown Analyte Negati ve Not Available [facility] [address], [place], [address], 05/11/2020 14:27:51 04/12/19 21 04/11/2020 urina lysis panel , auto Unknown Analyte Clean Catch Not Available [facility] [address], [place], [address], 04/11/2020 13:03:36 04/12/19 21 04/11/2020 urina lysis panel , auto Unknown Analyte Yellow Not Available [facility] [address], [place], [address], 04/11/2020 13:03:36 04/12/19 21 04/11/2020 urina lysis panel , auto Unknown Analyte Clear Not Available [facility] [address] [place] [address] [address], [place], [address], 04/11/2020 13:03:36 04/12/19 21 04/11/2020 urina lysis panel , auto Unknown Analyte 1.010 Not Available [facility] [address], [place], [address], 04/11/2020 13:03:36 04/12/19 21 04/11/2020 urina lysis panel , auto Unknown Analyte 1.003- 1.035 Not Available [facility] [address], [place], [address], 04/11/2020 13:03:36 04/12/19 21 04/11/2020 urina lysis panel , auto Unknown Analyte 6.0 Not Available [facility] [address], [place], [address], 04/11/2020 13:03:36 04/12/19 21 04/11/2020 urina lysis panel , auto Unknown Analyte 5.0-8. 0 Not Available [facility] [address], [place], [address], 04/11/2020 13:03:36 04/12/19 21 04/11/2020 urina lysis panel , auto Unknown Analyte Negati ve Not Available [facility] [address], [place], [address], 04/11/2020 13:03:36 04/12/19 21 04/11/2020 urina lysis panel , auto Unknown Analyte Negati ve Not Available [facility] [address], [place], [address], 04/11/2020 13:03:36 04/12/19 21 04/11/2020 urina lysis panel , auto Unknown Analyte Negati ve Not Available [facility] [address], [place], [address], 04/11/2020 13:03:36 04/12/19 21 04/11/2020 urina lysis panel , auto Unknown Analyte Negati ve Not Available [facility] [address], [place], [address], 04/11/2020 13:03:36 04/12/19 21 04/11/2020 urina lysis panel , auto Unknown Analyte Negati ve Not Available [facility] [address], [place], [address], 04/11/2020 13:03:36 04/12/19 21 04/11/2020 urina lysis panel , auto Unknown Analyte Negati ve Not Available [facility] [address], [place], [address], 04/11/2020 13:03:36 04/12/19 21 04/11/2020 urina lysis panel , auto Unknown Analyte Normal Not Available [facility] [address], [place], [address], 04/11/2020 13:03:36 04/12/19 21 04/11/2020 urina lysis panel , auto Unknown Analyte Normal Not Available [facility] [address], [place], [address], 04/11/2020 13:03:36 04/12/19 21 04/11/2020 urina lysis panel , auto Unknown Analyte Negati ve Not Available [facility] [address], [place], [address], 04/11/2020 13:03:36 04/12/19 21 04/11/2020 urina lysis panel , auto Unknown Analyte Negati ve Not Available [facility] [address], [place], [address], 04/11/2020 13:03:36 04/12/19 21 04/11/2020 urina lysis panel , auto Unknown Analyte Normal Not Available [facility] [address], [place], [address], 04/11/2020 13:03:36 04/12/19 21 04/11/2020 urina lysis panel , auto Unknown Analyte Normal 1 mg/dl Not Available [facility] [address], [place], [address], 04/11/2020 13:03:36 04/12/19 21 04/11/2020 urina lysis panel , auto Unknown Analyte Negati ve Not Available [facility] [address], [place], [address], 04/11/2020 13:03:36 04/12/19 21 04/11/2020 urina lysis panel , auto Unknown Analyte Negati ve Not Available [facility] [address], [place], [address], 04/11/2020 13:03:36 04/12/19 21 04/11/2020 urina lysis panel , auto Unknown Analyte Negati ve Not Available [facility] [address], [place], [address], 04/11/2020 13:03:36 04/12/19 21 04/11/2020 urina lysis panel , auto Unknown Analyte Negati ve Not Available [facility] [address], [place], [address], 04/11/2020 13:03:36 03/20/19 21 03/20/2020 urina lysis panel , auto Unknown Analyte Clean Catch Not Available [facility] [address], [place], [address], 03/20/2020 13:17:10 03/20/19 21 03/20/2020 urina lysis panel , auto Unknown Analyte Yellow Not Available [facility] [address], [place], [address], 03/20/2020 13:17:10 03/20/1903/20/2020 urina lysis panel , auto Unknown Analyte Clear Not Available [facility] [address], [place], [address], 03/20/2020 13:17:10 03/20/19 21 03/20/2020 urina lysis panel , auto Unknown Analyte 1.010 Not Available [facility] [address], [place], [address], 03/20/2020 13:17:10 03/20/1903/20/2020 urina lysis panel , auto Unknown Analyte 1.003- 1.035 Not Available [facility] [address], [place], [address], 03/20/2020 13:17:10 03/20/1903/20/2020 urina lysis panel , auto Unknown Analyte 6.5 Not Available [facility] [address], [place], [address], 03/20/2020 13:17:10 03/20/1903/20/2020 urina lysis panel , auto Unknown Analyte 5.0-8. 0 Not Available [facility] [address], [place], [address], 03/20/2020 13:17:10 03/20/19 21 03/20/2020 urina lysis panel , auto Unknown Analyte Negati ve Not Available [facility] [address], [place], [address], 03/20/2020 13:17:10 03/20/1903/20/2020 urina lysis panel , auto Unknown Analyte Negati ve Not Available [facility] [address], [place], [address], 03/20/2020 13:17:10 03/20/19 21 03/20/2020 urina lysis panel , auto Unknown Analyte Negati ve Not Available [facility] [address], [place], [address], 03/20/2020 13:17:10 03/20/1903/20/2020 urina lysis panel , auto Unknown Analyte Negati ve Not Available [facility] [address], [place], [address], 03/20/2020 13:17:10 03/20/1903/20/2020 urina lysis panel , auto Unknown Analyte Negati ve Not Available [facility] [address], [place], [address], 03/20/2020 13:17:10 03/20/1903/20/2020 urina lysis panel , auto Unknown Analyte Negati ve Not Available [facility] [address], [place], [address], 03/20/2020 13:17:10 03/20/19 21 03/20/2020 urina lysis panel , auto Unknown Analyte Normal Not Available [facility] [facility] [address], [place], [address], 03/20/2020 13:17:10 03/20/19 21 03/20/2020 urina lysis panel , auto Unknown Analyte Normal Not Available [facility] [address], [place], [address], 03/20/2020 13:17:10 03/20/1903/20/2020 urina lysis panel , auto Unknown Analyte Negati ve Not Available [facility] [place] [address], [place], [address], 03/20/2020 13:17:10 03/20/1903/20/2020 urina lysis panel , auto Unknown Analyte Negati ve Not Available [facility] [address], [place], [address], 03/20/2020 13:17:10 03/20/1903/20/2020 urina lysis panel , auto Unknown Analyte Normal Not Available [facility] [address], [place], [address], 03/20/2020 13:17:10 03/20/19 21 03/20/2020 urina lysis panel , auto Unknown Analyte Normal 1 mg/dl Not Available [facility] [address], [place], [address], 03/20/2020 13:17:10 03/20/19 21 03/20/2020 urina lysis panel , auto Unknown Analyte Negati ve Not Available [facility] [address], [place], [address], 03/20/2020 13:17:10 03/20/19 21 03/20/2020 urina lysis panel , auto Unknown Analyte Negati ve Not Available [facility] [address], [place], [address], 03/20/2020 13:17:10 03/20/19 21 03/20/2020 urina lysis panel , auto Unknown Analyte Negati ve Not Available [facility] [address] [facility] [address], [place], [address], 03/20/2020 13:17:10 03/20/19 21 03/20/2020 urina lysis panel , auto Unknown Analyte Negati ve Not Available [facility] [address], [place], [address], 03/20/2020 13:17:10 09/29/19 25 09/28/2024 SURGI BRENDA surgical SEE BELOW normal Surgi brenda Patho logy Repor t KAMALJITE NT NAME: BALDEMAR CRAIN, BRAND ON PATH: [id number] DATE of : 06/05 806 Copy to: Diagn osis: A) Ascen ding colon polyp s: Multi ple fragm ents of tubul ar adeno mas and hyper plast ic polyp s B) Sigmo id polyp : Tubul ar adeno ma C) Desce nding colon polyp : Fragm ents of tubul ar adeno ma SOURC E OF SPECI MEN: COLON POLYP , ASCEN DING COLON POLYP , SIGMO ID COLON POLYP , DESCE NDING CLINI BRENDA INFOR MATIO N: THREE 2 TO 5 mm POLYP S ASCEN DING COLON ONE SMALL 4-6 mm POLYP SIGMO ID COLON ONE SMALL 4-6 mm POLYP DESCE NDING COLON DIVER TICUL OSIS SIGMO ID COLON & DESCE NDING COLON D 12.2 D 12.5 D 12.4 K 57.30 Gross Descr iptio n: A) Patie nt name and date of verif ied. Recei helio in forma sonu label ed with the patie nt's name and desig nated asce nding colon polyp s are five fragm ents of pale horan tissu e rangi ng from 0.2 to 0.4 cm. Entir jeny submi tted in one casse tte label ed A1. B) Patie nt name and date of verif ied. Recei helio in forma sonu label ed with the patie nt's name and desig nated sigm oid polyp is a singl e fragm ent of pale horan tissu e measu ring 0.6 cm. Entir jeny submi tted in one casse tte label ed B1. C) Patie nt name and date of verif ied. Recei helio in forma sonu label ed with the patie nt's name and desig nated desc endin g colon polyp are two fragm ents of pale horan tissu e each measu ring 0.3 cm. Entir jeny submi tted in one casse tte label ed C1. [facility] 09/29 10:18 AM Micro scopi c Descr iptio n: A micro scopi c exami natio n has been perfo rmed and the resul t(s) are as noted above . MARYANA BARRIENTOS Rosalee VELASQUEZ-Vitaliy KIMBLE MD Urszula d Out Date: 09/30 12:50 Page 1 of 1 Not Available [facility] [place], [address], 09/30/2024 12:51:13 Result Notes None recorded. Procedures Surgical History Date Name Laterality Status Provider Name and Address Organization Details Recorded Time cholecystectomy completed [facility] 03/20/2020 13:16:53 Imaging Results None recorded. Procedure Notes None recorded. Medical Equipment None Reported. Allergies No known drug allergies Medications Name Sig Start Date Stop Date Status Note LastModified by Organization Details LastModified Time cyclobenzap rine 10 mg tablet active Not Available Not Available Not Available atorvastati n 40 mg tablet TAKE ONE TABLET BY MOUTH EVERY DAY active Not Available Not Available No t Available hydrocodone 7.5 mg-ibuprofe n 200 mg tablet TAKE 1 TO 2 TABLETS BY MOUTH TWICE DAILY FOR ACUTE PAIN 05/11 completed Not Available Not Available Not Available atorvastati n 80 mg tablet active Not Available Not Available Not Available doxycycline hyclate 100 mg capsule TAKE ONE CAPSULE BY MOUTH EVERY TWELVE HOURS FOR 7 DAYS -- FINISH ALL MEDICINE -- 05/11 completed Not Available Not Available Not Available clindamycin HCl 300 mg capsule TAKE ONE CAPSULE BY MOUTH EVERY 6 HOURS FOR 7 DAYS -- FINISH ALL MEDICINE -- active Not Available Not Available No t Available hydrocodone 5 mg-acetamin ophen 325 mg tablet TAKE 1 TABLET BY MOUTH EVERY 6 HOURS NEEDED FOR 3 DAYS active Not Available Not Available No t Available prednisone 20 mg tablet TAKE ONE TABLET WITH FOOD OR MILK EVERY DAY active Not Available Not Available No t Available metronidazo le 500 mg tablet TAKE ONE TABLET BY MOUTH THREE TIMES DAILY active Not Available Not Available No t Available ciprofloxac in 500 mg tablet TAKE ONE TABLET BY MOUTH EVERY TWELVE HOURS active Not Available Not Available No t Available ketorolac 10 mg tablet TAKE ONE TABLET BY MOUTH EVERY 6 HOURS active Not Available Not Available No t Available tamsulosin 0.4 mg capsule TAKE TWO CAPSULES BY MOUTH ONCE DAILY NEEDED active Not Available Not Available No t Available linezolid 600 mg tablet active Not Available Not Available Not Available pantoprazol e 40 mg tablet,yo yed release TAKE ONE TABLET BY MOUTH EVERY DAY active Not Available Not Available No t Available metoprolol succinate ER 25 mg tablet,exte nded release 24 hr TAKE ONE TABLET BY MOUTH EVERY DAY active Not Available Not Available No t Available cefuroxime axetil 500 mg tablet Take 1 tablet every 12 hours by oral route. 05/11 completed Not Available Not Available Not Available levofloxaci n 750 mg tablet active Not Available Not Available Not Available ondansetron 4 mg disintegrat ing tablet DISSOLVE ONE TABLET ON TONGUE EVERY 6 HOURS NEEDED active Not Available Not Available No t Available nabumetone 500 mg tablet Take 1 tablet twice a day by oral route. active Not Available Not Available No t Available oxycodone 5 mg tablet 05/11 completed Not Available Not Available Not Available metoprolol tartrate 25 mg tablet TAKE 1 TABLET BY MOUTH ONCE DAILY active Not Available Not Available No t Available sodium,pota ssium,mag sulfates 17.5 gram-3.13 gram-1.6 gram oral soln TAKE DIRECTED active Not Available Not Available No t Available Vitals Date Recorded Body height Body mass index (BMI) Body weight Provider Name and Address Organization Details Last Updated DateTime 03/20/2020 157.48 cm 30.4 kg/m2 99249.33 g [facility] 03/20/2020 13:15:38 Date Recorded Body height Body mass index (BMI) Body weight Provider Name and Address Organization Details Last Updated DateTime 04/11/2020 157.48 cm 30.4 kg/m2 88903.33 g [facility] 04/11/2020 13:03:16 Date Recorded Body height Body mass index (BMI) Body weight Provider Name and Address Organization Details Last Updated DateTime 05/11/2020 157.48 cm 30.4 kg/m2 68423.33 g Claudia Jay [facility] 05/11/2020 14:27:06 Date Recorded Body height Body mass index (BMI) Body weight Provider Name and Address Organization Details Last Updated DateTime 12/04/2020 157.48 cm 30.4 kg/m2 65855.33 g [facility] 12/04/2020 13:16:21 Social History Question Answer Notes LastModified by Organizat ion Details LastModified Time Tobacco Smoking Status Current Every Day Smoker [facility] 03/20/2020 13:16:22 How Much Tobacco Do You Chew? None [email or web address] Information not available 05/11/2020 Marital Status Informatio n not available 03/20/2020 How Much Tobacco Do You Smoke? 1 PPD Information not available 03/20/2020 Sex: Unknown Functional Status Question Answer Note LastModified by Organizat ion Details LastModified Time What is your level of alcohol consumption? Occasional [email or web address] Information not available 03/20/2020 Mental Status None recorded. Family History Relationship Description Onset Age of this Age Resolved Age Notes LastModified by Organization Details LastModified Time Father Diabetes mellitus [email or web address] Not available 2020 13:16:10 Father Family history of malignant neoplasm [email or web address] Not available 2020 13:16:16 Medical History Condition Response BPH Y Past Encounters Encounter ID Performer Location Encounter Start Date Encounter Closed Date Diagnosis/Indication Diagnosis SNOMED-CT Code Diagnosis ICD10 Code Diagnosis IMO Codes Diagnosis Note [id number] GISELA KNOX MD SURGERY SCHEDULE [address] [place] [address] 07/21/2018 07:52:54 07/21/2018 08:00:59 [id number] GISELA KNOX MD [facility] [address] [id number] 03/20/2020 12:51:51 03/20/2020 13:57:06 Acute on chronic prostatitis 333409087 N41.8 follow-up 3 weeks [id number] GISELA KNOX MD [facility] [address] [phone] 04/11/2020 12:56:43 04/11/2020 13:28:10 Benign prostatic hyperplasia 154198141 N40.1 plan as above follow-up 2 weeks Chronic prostatitis 1989 5009 N41.1 [id number] GISELA KNOX MD [facility] [address] [address] 05/11/2020 14:06:21 05/11/2020 14:52:04 Chronic prostatitis 98664205 N41.1 He appears to be doing well. He will continue with tamsulosin . He will follow-up in 6 months, earlier if need be [id number] MD BETTY COATES [facility] [address] [address] 12/04/2020 12:51:16 12/04/2020 13:47:57 Chronic prostatitis 95249216 N41.1 He appears to be doing well. He will continue with tamsulosin . He will follow-up 1 year, earlier if need be [id number] RANDALL GROVES MD SURGERY SCHEDULE [address] [place] [phone] 09/28/2024 09:18:09 09/28/2024 09:18:33 Health Concerns Section Related Observation LastModified by Organization Detai ls LastModified Time None Recorded Concern Status LastModified by Organization Details LastModified Time None Recorded Advance Directives Directive None Recorded Payers Insurance Date Sequence Insurance Name Policy Number Policy Matos Covered Member ID Matos Member ID Guarantor Name 09/08/2024 1 [employer] (POS) Donnie Lewis [id number] Donnie Lewis 10/01/2024 1 UMR [id number] Donnie Lewis [id number] Donnie Lewis Notes Date Note Type Note Provider Name and Address Organization Details Recorded Time 03/20/2020 text/html patient last seen here by me at time of vasectomy in July 2018. He also had a history of chronic prostatitis. Currently for the last 2 months he said perineal discomfort frequency and urgency as well as pain with ejaculation. He has been on antibiotics without complete resolution of symptoms. He is also developed swelling and redness of his left thigh and x-rays planning to go to the emergency room after leaving here for further evaluation and rule out a DVT. He has had no similar issues before. GISELA KNOX MD [address] [place] [address], [phone], [facility] 03/21/2020 12:17:50 04/11/2020 text/html patient is here also up of symptoms of chronic prostatitis previously. He takes tamsulosin once per day. At his visit 3 weeks ago he also was complaining of some left thigh swelling and redness. He presented to the emergency room at [facility] for further evaluation. He had ultrasound as well as CT scan and also MRI of the areas thigh and leg. He ultimately referred to [facility] later where infectious disease as well as orthopedics and surgery saw him. He is placed on antibiotics for possible fasciitis remains on Levaquin and a second antibiotic. All swelling and erythema have resolved and he feels much better the above scenario he still have her has voiding complaints with double voiding and postvoid dribbling. With his recent medical conditions I suggested we increase his dose to twice a day before attempting any additional evaluation. We discussed potential cystoscopy under anesthesia with possible direct visual internal urethrotomy. [place], [address], [facility] 04/11/2020 14:04:02 05/11/2020 text/html Patient is here for 1 month follow-up regarding chronic prostatitis. He was also treated by his PCP for left lower extremity cellulitis and possible fasciitis all swelling and erythema have resolved. This was managed at infectious disease. He has completed a prolonged course of antibiotics at all prostatitis symptoms have resolved. He is voiding well. He continues to take tamsulosin. He has no urologic complaints at this time. [place], [address], [facility] 05/14/2020 07:16:37 12/04/2020 text/html patient is here for scheduled 6 month follow-up with previous history of chronic prostatitis symptoms. He continues to take tamsulosin and his symptoms have improved after increasing it to twice per day he's had no relapses of any discomfort. He has nocturia anywhere from 0-2 times per night depending on his level of sleep. He has no voiding complaints at all on current therapy. His urine today is unremarkable. GISELA KNOX MD [facility] [place], [address], [facility] 12/04/2020 13:42:45
--- OUTSIDE RECORDS SUMMARY | 2024-12-10 03:46 | XMS_ITS | Clinical Summary ---
Author Organization Healthcare Address [address] [id number] Care Team Providers Care Farm Technician Name Role Phone Duncan Morse MD Primary Care Provider + [phone] Social History Tobacco Use Types Packs/Day Years Used Date Smoking Tobacco: Never Assessed Sex and Gender Information Value Date Recorded Sex Assigned at Not on file Legal Sex Male 7:48 PM EDT Gender Identity Not on file Sexual Orientation Not on file Plan of Treatment Not on file Care Teams Farm Technician Relationship Specialty Start Date End Date Duncan Morse MD [address] [place] [address] PCP - General 06/22/20
--- NOTE | 2024-12-10 03:54 | CT_ITS ---
PROCEDURE INFORMATION: Exam: CT Abdomen And Pelvis With Contrast Exam date and time: 12/10/2024 4:36 AM Age: 44 years old Clinical indication: Nausea; Abdominal pain; Additional info: Known diverticulitis, peritonitic TECHNIQUE: Imaging protocol: Computed tomography of the abdomen and pelvis with contrast. Radiation optimization: All CT scans at this facility use at least one of these dose optimization techniques: automated exposure control; mA and/or kV adjustment per patient size (includes targeted exams where dose is matched to clinical indication); or iterative reconstruction. Contrast material: ISOVUE; Contrast volume: 75 ml; Contrast route: IV; COMPARISON: MR HIP LT WO/W CON 03/26/2020 1:45 PM FINDINGS: Coronary arteries: A small amount of coronary calcium. Liver: The liver is low in density. Gallbladder and biliary ducts: Cholecystectomy. Pancreas: Normal. No ductal dilation. Spleen: Normal. No splenomegaly. Adrenal glands: Normal. No mass. Kidneys and ureters: Normal. No hydronephrosis. Stomach and bowel: Concentric thickening and inflammation at the junction of the descending and sigmoid colon is seen within the left pelvis consistent with acute diverticulitis. No evidence of abscess, ileus, or obstruction identified. Appendix: No evidence of appendicitis. Intraperitoneal space: Unremarkable. No free air. No significant fluid collection. Vasculature: Unremarkable. No abdominal aortic aneurysm. Lymph nodes: Unremarkable. No enlarged lymph nodes. Urinary bladder: Unremarkable as visualized. Reproductive: Unremarkable as visualized. Bones/joints: Unremarkable. No acute fracture. Soft tissues: Unremarkable. IMPRESSION: 1. Concentric thickening and inflammation at the junction of the descending and sigmoid colon is seen within the left pelvis consistent with acute diverticulitis. No evidence of abscess, ileus, or obstruction identified. 2. Cholecystectomy. 3. Diffuse hepatic steatosis. 4. Small amount of coronary calcium.
[2024-12-10 03:59] LABS: Microscopic, Urine URINE MICROSCOPIC (MICROSCOPIC)
[2024-12-10 04:08] LABS: Bilirubin,Urine Negative (Negative); Color,Urine YELLOW (Yellow); Glucose,Urine (UA) Negative (Negative); Ketones,Urine Negative (Negative); Leukocyte Esterase,Urine Negative (Negative); PH,Urine 5.5 (5.0-8.5); Protein,Urine Negative (Negative); Specific Gravity, Urine >= 1.030 (1.005-1.030); Urobilinogen,Urine 0.2 EU/dl (0.2)
[2024-12-10 04:14] LABS: Hematocrit 47.6 % (42.0-52.0); Hemoglobin 15.9 g/dL (14.1-18.0); Immature Granulocytes % 0.9 %; Mean Corpuscular HGB Conc 33.4 g/dL (31.8-35.4); Mean Corpuscular Hemoglobin 29.7 pg (27.0-31.2); Mean Corpuscular Volume 89.0 fl (80-94); Nucleated Red Blood Cells % 0 %; Platelet Count 273 K/mm3 (142-424); Red Blood Count 5.35 M/mm3 (4.60-6.20); Red Cell Distribution Width-SD 42.5 fL; White Blood Count 12.6 K/mm3 (4.8-10.8)
[2024-12-10] MEDS: ONDANSETRON 4MG/2ML VIAL 4 MG IV (04:24)
[2024-12-10] MEDS: LACTATED RINGERS 1000ML 1,000 ML 999 ML IV (04:24)
[2024-12-10] MEDS: HYDROMORPHONE 2MG/ML SYRINGE 1 MG IV (04:24)
[2024-12-10 04:30] LABS: Albumin Level 5.7 g/dl (3.5-5.0); Chloride 99 mmol/L (98-107); Potassium 3.9 mmoL/L (3.5-5.1); Sodium 136 mmol/L (136-145)
[2024-12-10 04:33] LABS: Alanine Aminotransferase 87 U/L (12-78); Albumin/Globulin Ratio 1.6 (1.1-1.8); Alkaline Phosphatase 91 U/L (38-126); Anion Gap 14.9 mEq/L (5-15); Aspartate Amino Transferase 47 U/L (17-59); Bilirubin,Total 0.8 mg/dl (0.2-1.3); Blood Urea Nitrogen 15 mg/dl (9-20); Calcium 8.9 mg/dl (8.4-10.2); Carbon Dioxide 26 mmol/L (22.0-30.0); Creatinine Clearance Estimated 79 mL/min (50-200); Creatinine,Serum 1.10 mg/dl (0.66-1.25); Estimated Glomerular Filt Rate 72 ml/min (>60); GFR (African American) 88 ML/MIN (>60); Globulin 3.6 g/dL (1.3-3.2); Glucose 106 mg/dl (74-100); Lipase 90 U/L (23-300); Total Protein,Serum 9.3 g/dl (6.3-8.2)
[2024-12-10 04:36] LABS: Activated Partial Thrombo Time 24.2 seconds (22.8-30.6); INR 1.04 (0.9-1.1); Prothrombin Time 11.5 seconds (10.1-12.5)
--- NOTE | 2024-12-10 04:37 | XR_ITS ---
PROCEDURE INFORMATION: Exam: XR Chest Exam date and time: 12/10/2024 4:44 AM Age: 44 years old Clinical indication: Pain; Other: Abdominal; Additional info: Sepsis TECHNIQUE: Imaging protocol: Radiologic exam of the chest. Views: 1 view. COMPARISON: CT ABDOMEN PELVIS W CON 12/10/2024 4:36 AM FINDINGS: Lungs: Unremarkable. No consolidation. Pleural spaces: Unremarkable. No pleural effusion. No pneumothorax. Heart/Mediastinum: Unremarkable. No cardiomegaly. Bones/joints: Unremarkable. IMPRESSION: No acute findings.
--- NOTE | 2024-12-10 04:47 | HMH.EDGENADL ---
Discharge Plan Disposition Patient Disposition: Admitted Condition: Fair Prescriptions Prescriptions: No Action atorvastatin 40 MG tablet 40 mg PO DAILY 0RF tamsulosin 0.4 MG capsule 0.4 mg PO DAILY 0RF pantoprazole 40 MG tablet,delayed release (DR/EC) 40 mg PO DAILY 0RF metoprolol tartrate 25 MG tablet 25 mg PO DAILY 0RF clindamycin HCl 300 mg capsule 300 mg PO Q8H Qty: 30 0RF ibuprofen [IBU] 800 mg tablet 800 mg PO Q8HP PRN (Reason: Moderate Pain) Qty: 30 0RF Referrals Follow up/Referrals: Yuko Soriano APRN [Primary Care Provider, Medical] - See instructions Clinical Impressions Clinical Impression: Diverticulitis, Sepsis Instructions Patient Instructions: DI for Acute Abdominal Pain Print Language Print Language: Faroese Discharge ED Provider: Lisa Ho General Adult HPI General Chief complaint: Abdominal Pain Stated complaint: abd pain, nausea Time Seen by Provider: 12/10/24 03:44 Mode of Arrival: Ambulatory Source of Information: Patient Description of Symptoms (Recalled from ER Triage Doc. by RN): PT presents to the ED for evaluation of abd pain. PT has a dx of diverticulitis. PT stated he usually has a routine that works but he has had worsening pain for the past week. PT is tender to touch and has pain with movement History of Present Illness HPI narrative: 44-year-old male presents to the ER for evaluation of abdominal pain. He reports a history of diverticulitis. He states he frequently gets diverticulitis and he and his PCP have a routine of Cipro, Flagyl, hydrocodone that typically works for him. He states 1 week ago he started developing symptoms and started his normal regimen a day after that. He states he seemed to be getting better except 24 hours ago he started having worsening pain and it has gotten progressively significantly worse. He states instead of just having pain in the left lower quadrant of the abdomen where his diverticulitis pain typically is, he is having diffuse pain throughout the abdomen radiating into both flanks, he states the bumps on the road when driving here made his abdomen hurt. He denies having known fevers at home. He states he has been taking all medications at home as prescribed. He reports nausea but no vomiting. No headache or dizziness, no numbness, tingling, or weakness, no chest pain or difficulty breathing, no dysuria or hematuria. Patient reports he typically is constipated when he has diverticulitis, he had a bowel movement 2 days ago but has not had one in more than 24 hours. He reports he has chronic prostatitis and often has worsening of this when he has diverticulitis. He has had cholecystectomy but no other abdominal surgeries. He has had previous colonoscopy that confirmed diverticulosis. He has had 1 previous bowel obstruction that was able to resolve without surgical intervention. Related Data Previous Rx's ?Medication ?Instructions ?Recorded atorvastatin 40 mg tablet 40 mg PO DAILY 03/27/20 metoprolol tartrate 25 mg tablet 25 mg PO DAILY 03/27/20 pantoprazole 40 mg tablet,delayed 40 mg PO DAILY 03/27/20 release tamsulosin 0.4 mg capsule 0.4 mg PO DAILY 03/27/20 clindamycin HCl 300 mg capsule 300 mg PO Q8H #30 caps 11/24/22 ibuprofen 800 mg tablet (IBU) 800 mg PO Q8HP PRN Moderate Pain 11/24/22 #30 tabs Allergies Allergy/AdvReac Type Severity Reaction Status Date / Time Penicillins Allergy Verified 11/24/22 16:47 [facility] Disclaimer: The information contained in this section may have been updated after the patient was seen, as this information can be updated by other users. Medical History (Updated 12/10/24 @ 05:23 by Lisa Ho MD) History of gastroesophageal reflux (GERD) Hyperlipidemia Hypertension Surgical History (Updated 11/24/22 @ 16:45 by Bharti Simons RN) History of cholecystectomy Social History Smoking Status: Current every day smoker tobacco type: cigarettes packs per day: 1 alcohol intake: current alcohol intake frequency: holidays/special occasions only substance use type: denies use current occupational status: employed Travel in the last 8 weeks?: None household members: spouse housing: house caffeine: Yes Have you lived/traveled outside US in past 30 days?: No Contact w/someone who lives/traveled outside US past 30 days?: No Exposure to someone with infectious disease in past 14 days?: No Do you have a fever (greater than 100.4 F or 38 C)?: No Have you tested positive for COVID-19?: No Exposed to someone with COVID-19 in past 14 days?: No Do you have a sore throat?: No Do you have a cough?: No Do you have any weakness?: No Do you have any diarrhea?: No Are you experiencing any unusual bleeding?: No Do you have any muscle aches/pain?: No Do you have any abdominal pain?: Yes Are you experiencing loss of taste or smell?: No Other Medical History Have you received the Flu Vaccine for this season: No Have you received the Pneumonia Vaccine: No ROS Obtained: Yes Systems reviewed as appropriate & no additional complaints except as documented Per HPI Physical Exam General General appearance: alert Comment: Ill-appearing, appears to be in pain Head Head exam: atraumatic and normocephalic Eye Eye exam: Present PERRL and EOMI ENT ENT exam: Present mucous membranes moist Neck Neck exam: Present normal inspection and full ROM Chest Chest inspection: Present symmetric chest wall rise; Absent tenderness Respiratory Respiratory exam: Present normal lung sounds bilaterally; Absent respiratory distress, wheezes or stridor Cardiovascular Cardiovascular exam: Present regular rate and normal rhythm Abdominal Exam Abdominal exam: Present soft, tenderness (Diffuse), guarding and rebound; Absent distention or rigidity Comment: Peritonitic throughout Extremities Exam Extremities exam: Present full ROM Neurological Exam Neurological exam: Present alert and oriented X3; Absent motor sensory deficit Psychiatric Psychiatric exam: Present normal affect and normal mood Skin Skin exam: Present warm and dry Medical Decision Making Medical Records Medical records reviewed: Yes I reviewed the patient's medical records. Screening: Per USPSTF and CDC recommendations, given the prevalence of disease in our region, it is our hospital?s policy to screen for HIV and viral Hepatitis for all patients aged 18 and over and those with ongoing risk factors. Kiko Inquiry Pt receiving controlled substance: No Vital Signs: 12/10/24 04:10 12/10/24 04:15 12/10/24 05:21 Temperature 98.1 F Temperature Source Oral Pulse Rate 105 H 91 H Pulse Rate [Right] 108 H Respiratory Rate 20 20 12 Blood Pressure 150/100 H 141/86 H Blood Pressure [Right Arm] 150/100 H Blood Pressure Mean [Right Arm] 116 02 Sat by Pulse Oximetry 100 100 98 Oxygen Delivery Method Room Air Room Air Room Air Lab Data Lab Results 12/10/24 03:46: Urine Color Yellow, Urine Appearance Clear, Urine pH 5.5, Ur Specific [place] >= 1.030, Urine Protein Negative, Urine Glucose (UA) Negative, Urine Ketones Negative, Urine Blood Negative, Urine Nitrate Negative, Urine Bilirubin Negative, Urine Urobilinogen 0.2, Ur Leukocyte Esterase Negative, Urine WBC None, Ur Squamous Epith Cells 3-5, Urine Bacteria None 12/10/24 04:05: WBC 12.6 H, RBC 5.35, Hgb 15.9, Hct 47.6, MCV 89.0, MCH 29.7, MCHC 33.4, RDW 13.0, Plt Count 273, MPV 9.7, Neut % (Auto) 67.7, Lymph % (Auto) 21.1, [place] % (Auto) 7.8, Eos % (Auto) 1.7, Baso % (Auto) 0.8, Neut # (Auto) 8.6 H, Lymph # (Auto) 2.7, [place] # (Auto) 1.0, Eos # (Auto) 0.2, Baso # (Auto) 0.1, PT 11.5, INR 1.04, APTT 24.2, Sodium 136, Potassium 3.9, Chloride 99, Carbon Dioxide 26, Anion Gap 14.9, BUN 15, Creatinine 1.10, Estimated Creat Clear 79, Estimated GFR 72, Est GFR ( Amer) 88, Glucose 106 H, Lactate 1.9, Calcium 8.9, Total Bilirubin 0.8, AST 47, ALT 87 H, Alkaline Phosphatase 91, Total Protein 9.3 H D, Albumin 5.7 H, Globulin 3.6 H, Albumin/Globulin Ratio 1.6, Lipase 90 12/10/24 04:05 12/10/24 04:05 Orders (Tests/Meds): ED MEDICATIONS Generic Name Dose Route Start Last Admin Trade Name Freq PRN Reason Stop Dose Admin Metronidazole 500 mg in 100 mls @ 100 mls/hr 12/10/24 04:37 Flagyl 500mg/100ml Ivpb IV 12/10/24 05:36 ONCE ONE Vancomycin/PEG/[place]/Lysine/Water 1.25 gm in 250 mls @ 125 mls/hr 12/10/24 04:45 Vancomycin 1.25gm/250ml (Peg) Premix IV 12/10/24 06:44 ONCE ONE Miscellaneous 1 each 12/10/24 04:45 Vancomycin Consult Request NOTAPPLIC 01/09/25 04:44 CONSULT PHARM[facility]Y [facility] Discontinued Medications Generic Name Dose Route Start Last Admin Trade Name Freq PRN Reason Stop Dose Admin Hydromorphone HCl 1 mg 12/10/24 03:54 12/10/24 04:24 Hydromorphone 2mg/Ml Syringe IV 12/10/24 03:55 1 mg ONCE ONE Administration Lactated Ringer's 1,000 mls @ 999 mls/hr 12/10/24 03:54 12/10/24 04:24 Lactated Ringer's 1000 Ml Bag IV 12/10/24 04:54 999 mls/hr .Q1H1M ONE Administration Cefepime HCl 2 gm/ Sodium 100 mls @ 200 mls/hr 12/10/24 04:37 12/10/24 05:15 Chloride IV 12/10/24 05:06 200 mls/hr ONCE ONE Administration Iopamidol 75 ml 12/10/24 04:43 12/10/24 04:50 Iopamidol-370 (76%);100ml Bottle IV 12/10/24 04:44 75 ml ONCE ONE Administration Ondansetron HCl 4 mg 12/10/24 03:54 12/10/24 04:24 Ondansetron 4mg/2ml Vial IV 12/10/24 03:55 4 mg ONCE ONE Administration Sodium Chloride 10 ml 12/10/24 04:43 12/10/24 04:50 Sodium Chloride 0.9% 10ml Syr (Rad Only) IV 12/10/24 04:44 10 ml ONCE ONE Administration ORDERS Category Date Time Status CT abdomen pelvis w con Stat Cat Scan 12/10/24 03:54 Completed CXR --portable [XR chest portable] Stat Exams 12/10/24 04:37 Completed CBC w/Auto Diff [Complete Blood Count Auto Diff] Stat Lab 12/10/24 04:05 Completed CMP [Comprehensive Metabolic Panel] Stat Lab 12/10/24 04:05 Completed HIV Combo Stat Lab 12/10/24 04:05 Received Hepatitis C Ab Qual. W/ RFX Stat Lab 12/10/24 04:05 Received Lactic Acid Stat Lab 12/10/24 04:05 Completed Lipase Stat Lab 12/10/24 04:05 Completed PT INR [Prothrombin Time INR] Stat Lab 12/10/24 04:05 Completed PTT [Activated Partial Thrombo Time] Stat Lab 12/10/24 04:05 Completed Urinalysis and Microscopic Stat Lab 12/10/24 03:46 Completed Blood Culture Stat Micro 12/10/24 05:03 Ordered Urine Culture Stat Micro 12/10/24 03:46 Received Tissue Perfus/Sepsis Re-Eval Sepsis Re-Evaluation Performed: Yes Date Performed: 12/10/24 Time Performed: 05:23 Medical Decision Narrative: In summary, this 44-year-old male with comorbidities described in HPI presents to the emergency department today with concerns of diffuse abdominal pain in the setting of diverticulitis. On initial evaluation patient is tachycardic but afebrile, otherwise hemodynamically stable, GCS 15, appears ill and in significant pain, peritonitic abdomen. Differential diagnosis includes but is not limited to diverticulitis, abscess, perforation, enteritis, urinary tract infection, sepsis, kidney dysfunction, among others. Based on these concerns, I ordered hematologic and serum labs, patient was sent immediately for CT abdomen pelvis to evaluate for perforation, urinalysis, chest x-ray. Patient received 1 L of IV fluids initially as well as Dilaudid, Zofran for symptomatic management. Labs personally reviewed demonstrate leukocytosis WBC 12.6, no anemia, normal platelets, CMP not acutely actionable, lipase normal, lactic normal, UA negative for findings of infection. With tachycardia and leukocytosis as well as a suspected abdominal source, patient meets sepsis criteria. I do not believe he requires a full 30 mL/kg fluid bolus since he is not hemodynamically unstable, after 1 L of fluids his heart rate has normalized now in the 90s. He is not hypotensive, no evidence of shock. Pain is improved after initial interventions. Blood cultures added to workup, broad-spectrum antibiotics including vancomycin, cefepime, Flagyl ordered for treatment. XR personally interpreted demonstrates no acute thoracic abnormality, see radiology read for final interpretation. CT imaging personally interpreted demonstrate no free air or bowel obstruction, no obvious evidence of abscess though there is inflammatory changes in the left lower quadrant. Radiology read comments on diverticulitis without abscess or perforation. See read for full interpretation. On reassessment patient's pain is controlled, vitals have improved. He is resting more comfortably. I discussed admission with him and he is agreeable to this for continued management of diverticulitis complicated by sepsis. I had an interactive discussion with the hospitalist, Puja. We discussed this presentation, patient's history, workup, and current management. She graciously accepted the patient for admission. Patient was admitted in stable condition. Critical Care Critical Care Time Critical Care Time: Yes Attestation: On 12/10/24, the high probability of a clinically significant, sudden or life threatening deterioration of the following system(s) (hemodynamic) required my full and direct attention, intervention and personal management. The time I documented below is in addition to time spent performing reported procedures but includes the following listed in this critical care notation. Total Time Total Critical Care Time: 35
[2024-12-10] MEDS: SODIUM CHLORIDE 0.9% 10ML SYR (RAD ONLY) 10 ML IV (04:50)
[2024-12-10] MEDS: IOPAMIDOL-370 (76%);100ML BOTTLE 75 ML IV (04:50)
[2024-12-10] MEDS: CEFEPIME HCL 2 GM in 0.9 % SODIUM CHLORIDE 100 ML IV (05:15)
[2024-12-10 05:27] LABS: Hepatitis C Ab Qual. W/ RFX NEGATIVE (Negative)
--- NOTE | 2024-12-10 05:39 | P.HP_ITS ---
<Statement entered by Milton Damico MD - 12/10/24 09:05> Rounded on patient after nurse practitioner. Personally examined and interviewed patient. Agree with exam findings and care plan as documented. History of Present Illness *Admission Date: 12/10/24 *Reason for visit:: Abdominal pain *History of present illness: Patient is a 44-year-old male with past medical history significant for hypertension, GERD, chronic prostatitis, bowel obstruction, recurrent div erticulitis. Presents to [facility] due to abdominal pain. Reports recurrent episodes and is typically placed on Cipro and Flagyl per his PCP. Developed symptoms approximately week ago and began the typical regime last Thursday. Noted initial improvement but within the last day, symptoms returned. States significant pain in his left lower abdominal region. Denies any known alleviating or aggravating factors. Recent colonoscopy this past October. Denies fever, chills, vomiting, chest pain or shortness of breath. Initial ED workup included laboratory studies which resulted with WBC 12.6, ALT 87, UA unremarkable. Imaging study included CT abdomen pelvis I personally reviewed showing sigmoid colon within the left pelvis consistent with acute diverticulitis. Vitals blood pressure 141/86, HR 91, RR 13, temp 98.6, SpO2 98% on room air. [facility] Disclaimer: The information contained in this section may have been updated after the patient was seen, as this information can be updated by other users. Medical History (Updated 12/10/24 @ 05:57 by Vikram Almaraz RN) Prostatitis Diverticulitis History of gastroesophageal reflux (GERD) Hyperlipidemia Hypertension Surgical History History of cholecystectomy Social History Smoking Status: Current every day smoker tobacco type: cigarettes packs per day: 1 alcohol intake: current alcohol intake frequency: holidays/special occasions only substance use type: denies use current occupational status: employed Travel in the last 8 weeks?: None household members: spouse housing: house caffeine: Yes Have you lived/traveled outside US in past 30 days?: No Contact w/someone who lives/traveled outside US past 30 days?: No Exposure to someone with infectious disease in past 14 days?: No Do you have a fever (greater than 100.4 F or 38 C)?: No Have you tested positive for COVID-19?: No Exposed to someone with COVID-19 in past 14 days?: No Do you have a sore throat?: No Do you have a cough?: No Do you have any weakness?: No Do you have any diarrhea?: No Are you experiencing any unusual bleeding?: No Do you have any muscle aches/pain?: No Do you have any abdominal pain?: Yes Are you experiencing loss of taste or smell?: No Other Medical History Have you received the Flu Vaccine for this season: No Have you received the Pneumonia Vaccine: No Review of Systems Review of Systems Review of systems:: pertinent systems reviewed and negative unless documented below Constitutional Constitutional: Reports system reviewed and no additional complaints, except as documented and Reports as per HPI Eyes Eyes: Reports system reviewed and no additional complaints, except as documented and Reports as per HPI ENT Ears, Nose, Mouth, and Throat: Reports system reviewed and no additional complaints, except as documented and Reports as per HPI *Cardiovascular Cardiovascular: Reports system reviewed and no additional complaints, except as documented and Reports as per HPI *Respiratory Respiratory: Reports system reviewed and no additional complaints, except as documented and Reports as per HPI *Gastrointestinal Gastrointestinal: Reports system reviewed and no additional complaints, except as documented *Genitourinary Genitourinary: Reports as per HPI *Musculoskeletal Musculoskeletal: Reports system reviewed and no additional complaints, except as documented and Reports as per HPI Integumentary/Breasts Skin/Breast: Reports system reviewed and no additional complaints, except as documented and Reports as per HPI *Neurologic Neurologic: Reports system reviewed and no additional complaints, except as documented and Reports as per HPI Psychiatric Psychiatric: Reports system reviewed and no additional complaints, except as documented and Reports as per HPI Endocrine Endocrine: Reports system reviewed and no additional complaints, except as documented and Reports as per HPI Hematologic/Lymphatic Hematologic/Lymphatic: Reports system reviewed and no additional complaints, except as documented and Reports as per HPI Allergic/Immunologic Allergic/Immunologic: Reports system reviewed and no additional complaints, except as documented and Reports as per HPI Meds Home Medications and Allergies Home Medications ?Medication ?Instructions ?Recorded ?Confirmed ?Type atorvastatin 40 mg tablet 40 mg PO DAILY 03/27/2003/05 Rx metoprolol tartrate 25 mg tablet 25 mg PO DAILY 12/10/24 Rx pantoprazole 40 mg tablet,delayed 40 mg PO DAILY 03/2712/10/24 Rx release clindamycin HCl 300 mg capsule 300 mg PO Q8H #30 caps 11/24/22 12/10/24 Rx ibuprofen 800 mg tablet (IBU) 800 mg PO Q8HP PRN Moder ate Pain 11/24/22 12/10/24 Rx #30 tabs tamsulosin 0.4 mg capsule 0.4 mg PO BID 12/10/2412/10 History New Prescriptions to Start Prescriptions: Allergies Allergy/AdvReac Type Severity Reaction Status Date / Time Penicillins Allergy Verified 11/24/22 16:47 Exam Data for Last 24 hours Vital signs and Labs for Last 24 Hours: Temp Pulse Resp BP Pulse Ox O2 Del Method 98.1 F 91 H 12 141/86 H 98 Room Air 12/10/24 04:10 12/10/24 05:21 12/10/24 05:21 12/10/24 05:21 12/10/24 05:21 12/10/24 05:21 Laboratory Results - last 24 hr 12/10/24 03:46: Urine Color Yellow, Urine Appearance Clear, Urine pH 5.5, Ur Specific [place] >= 1.030, Urine Protein Negative, Urine Glucose (UA) Negative, Urine Ketones Negative, Urine Blood Negative, Urine Nitrate Negative, Urine Bilirubin Negative, Urine Urobilinogen 0.2, Ur Leukocyte Esterase Negative, Urine WBC None, Ur Squamous Epith Cells 3-5, Urine Bacteria None 12/10/24 04:05: WBC 12.6 H, RBC 5.35, Hgb 15.9, Hct 47.6, MCV 89.0, MCH 29.7, MCHC 33.4, RDW 13.0, Plt Count 273, MPV 9.7, Neut % (Auto) 67.7, Lymph % (Auto) 21.1, [place] % (Auto) 7.8, Eos % (Auto) 1.7, Baso % (Auto) 0.8, Neut # (Auto) 8.6 H, Lymph # (Auto) 2.7, [place] # (Auto) 1.0, Eos # (Auto) 0.2, Baso # (Auto) 0.1, PT 11.5, INR 1.04, APTT 24.2, Sodium 136, Potassium 3.9, Chloride 99, Carbon Dioxide 26, Anion Gap 14.9, BUN 15, Creatinine 1.10, Estimated Creat Clear 79, Estimated GFR 72, Est GFR ( Amer) 88, Glucose 106 H, Lactate 1.9, Calcium 8.9, Total Bilirubin 0.8, AST 47, ALT 87 H, Alkaline Phosphatase 91, Total Protein 9.3 H D, Albumin 5.7 H, Globulin 3.6 H, Albumin/Globulin Ratio 1.6, Lipase 90, HCV Ab PHILIP w/Rflx PCR Qn Negative, HIV Ag/Ab Combo Qual Negative I & O for Last 24 hours: Intake & Output 12/07/24 12/08/24 12/09/24 12/10/24 23:59 23:59 23:59 23:59 Weight 65.771 kg Constitutional Constitutional: no acute distress *Routine HEENT Exam Head: Present normocephalic and atraumatic Eye: Present EOMI, PERRL and normal accommodation ENT: Present mucous membranes moist *Routine Neck Exam Neck: Present supple and full ROM *Routine Respiratory Exam Respiratory: Present normal respiratory effort *Routine Cardiovascular Exam Cardiovascular: Present RRR, Normal S1 and Normal S2 *Routine Abdominal Exam Abdominal: Present soft, normoactive bowel sounds and tenderness Comments: Lower left quadrant abdominal tenderness *Routine Rectal Exam Rectal:: deferred *Routine Genitalia Exam Genitalia:: deferred *Routine Extremities Exam Extremities: Present full ROM and pulses intact Routine Back/Spine/Pelvis Exam Back/Spine: Present full ROM *Routine Skin Exam Skin: Present intact *Routine Neurological Exam Neurological: Present alert, oriented X3 and CN II-XII intact Routine Psychiatric Exam Psychiatric: Present normal affect and normal thought process Assessment and Plan *Assessment and plan (1) Acute diverticulitis: Start date: 12/10/24 Status: Acute Category: Medical Code(s): K57.92 - Diverticulitis of intestine, part unspecified, without perforation or abscess without bleeding (2) Chronic prostatitis: Status: Chronic Category: Medical Code(s): N41.1 - Chronic prostatitis (3) Hypertension: Status: Chronic Qualifiers: Hypertension type: unspecified Qualified Code(s): I10 - Essential (primary) hypertension Category: Medical Code(s): I10 - Essential (primary) hypertension (4) Leucocytosis: Status: Acute Qualifiers: Leukocytosis type: unspecified Qualified Code(s): D72.829 - Elevated white blood cell count, unspecified Category: Medical Code(s): D72.829 - Elevated white blood cell count, unspecified (5) GERD (gastroesophageal reflux disease): Status: Acute Qualifiers: Esophagitis bleeding: without hemorrhage Category: Medical Code(s): K21.9 - Gastro-esophageal reflux disease without esophagitis Plan 1. Acute diverticulitis: Imaging study as noted above with evidence of diverticulitis. History of recurrent diverticulitis. Recieved broad-spectrum IV antibiotics in the emergency department-Vancomycin, cefepime and Flagyl and IV fluids. Afebrile, mild leukocytosis 12.6, tachycardic low 100 range now 90's. Resume IV fluids for hydration, IV antibiotics, IV morphine for pain management and IV Zofran for nausea management. Clear liquid diet. 2. Chronic prostatitis: Currently without replication but noted that this typically is exacerbated when he has flares of diverticulitis. 3. HTN: Stable, resume antihypertensive medication. 4. GERD: Resume home PPI. 5. DVT prophylaxis: SCDs Full code Clear liquid diet I personally discussed the management of this patient with the emergency department provider Dr. Ho, patient to be admitted for further IV antibiotic treatment, pain management and antiemetics for nausea management. Morning lab trend follow white count.
--- NOTE | 2024-12-10 05:41 | PC.NURSE ---
Report called to KIERAN Meade on [employer]
--- NOTE | 2024-12-10 05:58 | PC.NURSE ---
Patient arrive to floor via wheelchair.
[2024-12-10] MEDS: METRONIDAZ/SOD CHL 500 MG/100 ML PIGGYBACK 100 MG IV ×3 (06:02→20:19)
[2024-12-10] MEDS: MORPHINE 2MG/ML SYRINGE 2 MG IV ×3 (06:26→20:14)
[2024-12-10 06:47] LABS: Hematocrit 43.1 % (42.0-52.0); Immature Granulocytes % 0.6 %; Mean Corpuscular HGB Conc 32.7 g/dL (31.8-35.4); Mean Corpuscular Hemoglobin 29.4 pg (27.0-31.2); Mean Corpuscular Volume 90.0 fl (80-94); Nucleated Red Blood Cells % 0 %; Platelet Count 237 K/mm3 (142-424); Red Blood Count 4.79 M/mm3 (4.60-6.20); Red Cell Distribution Width-SD 42.5 fL; White Blood Count 12.8 K/mm3 (4.8-10.8)
[2024-12-10] MEDS: 0.9 % SODIUM CHLORIDE 1000ML 1,000 ML 100 ML IV (06:58)
[2024-12-10] MEDS: VANCOMYCIN/WATER FOR INJ (PEG) 1.25 GM/250 ML PIGGYBACK IV (06:59)
[2024-12-10 07:04] LABS: Anion Gap 13.1 mEq/L (5-15); Blood Urea Nitrogen 16 mg/dl (9-20); Calcium 8.3 mg/dl (8.4-10.2); Carbon Dioxide 21 mmol/L (22.0-30.0); Chloride 104 mmol/L (98-107); Creatinine Clearance Estimated 87 mL/min (50-200); Creatinine,Serum 1.00 mg/dl (0.66-1.25); Estimated Glomerular Filt Rate 81 ml/min (>60); GFR (African American) 98 ML/MIN (>60); Glucose 112 mg/dl (74-100); Potassium 4.1 mmoL/L (3.5-5.1); Sodium 134 mmol/L (136-145)
[2024-12-10 07:20] LABS: Hemoglobin 13.9 g/dL (14.1-18.0)
--- NOTE | 2024-12-10 09:42 | HMH.PHAINT1 ---
Pharmacy Intervention Comments: MEDICATION RECONCILIATION COMPLETE USING EXTERNAL PHARMACY FILL HISTORY.
[2024-12-10] MEDS: LEVOFLOXACIN/D5W 750 MG/150 ML 750 MG/150 ML PIGGYBACK 100 MG IV (11:10)
[2024-12-10] MEDS: KETOROLAC 30MG/ML VIAL 30 MG IV ×2 (13:49→23:14)
[2024-12-11 04:00] VITALS: BMI 33.7
[2024-12-11] MEDS: METRONIDAZ/SOD CHL 500 MG/100 ML PIGGYBACK 100 MG IV (05:35)
[2024-12-11] MEDS: KETOROLAC 30MG/ML VIAL 30 MG IV (05:40)
[2024-12-11 07:20] LABS: Hematocrit 43.4 % (42.0-52.0); Hemoglobin 14.2 g/dL (14.1-18.0); Immature Granulocytes % 1.0 %; Mean Corpuscular HGB Conc 32.7 g/dL (31.8-35.4); Mean Corpuscular Hemoglobin 29.3 pg (27.0-31.2); Mean Corpuscular Volume 89.7 fl (80-94); Nucleated Red Blood Cells % 0 %; Platelet Count 227 K/mm3 (142-424); Red Blood Count 4.84 M/mm3 (4.60-6.20); Red Cell Distribution Width-SD 42.3 fL; White Blood Count 10.2 K/mm3 (4.8-10.8)
--- NOTE | 2024-12-11 07:50 | PC.NURSE ---
Pt. is alert and orientated x 4. Pt. is on room air. Pt. has a history of Diverticulitis and this is a very bad flare up. Pt. states he was trying to manage symptoms at home but it was not successful. Pt. getting IV antibiotics and pain meds to control symptoms. Pt. feeling much better. Besides pain issues pt. had no other c/o's or needs. Personal items and call eng in reach. Bed in low and locked position. Safety measures in place.
[2024-12-11 08:00] VITALS: BP 133/68; PULSE 79; RESP 16; TEMP 36.6; O2SAT 97
[2024-12-11 08:09] LABS: Anion Gap 12.4 mEq/L (5-15); Blood Urea Nitrogen 12 mg/dl (9-20); Calcium 8.4 mg/dl (8.4-10.2); Carbon Dioxide 22 mmol/L (22.0-30.0); Chloride 104 mmol/L (98-107); Creatinine Clearance Estimated 148 mL/min (50-200); Creatinine,Serum 0.90 mg/dl (0.66-1.25); Estimated Glomerular Filt Rate 91 ml/min (>60); GFR (African American) 110 ML/MIN (>60); Glucose 105 mg/dl (74-100); Potassium 4.4 mmoL/L (3.5-5.1); Sodium 134 mmol/L (136-145)
[2024-12-11 08:30] VITALS: O2SAT 97
[2024-12-11] MEDS: ATORVASTATIN 40MG TABLET 40 MG PO (09:00)
[2024-12-11] MEDS: LEVOFLOXACIN/D5W 750 MG/150 ML 750 MG/150 ML PIGGYBACK 100 MG IV (09:00)
[2024-12-11] MEDS: PANTOPRAZOLE 40MG TABLET 40 MG PO (09:00)
--- NOTE | 2024-12-11 09:48 | P.DS_ITS ---
<Statement entered by Milton Damico MD - 12/11/24 12:55> Rounded on patient after nurse practitioner. Personally examined and interviewed patient. Agree with exam findings and care plan as documented. General Admission date:: 12/10/24 Discharge date: 12/11/24 HPI HPI HPI: Patient is a 44-year-old male with past medical history significant for hypertension, GERD, chronic prostatitis, bowel obstruction, recurrent diverticulitis. Presents to [facility] due to abdominal pain. Reports recurrent episodes and is typically placed on Cipro and Flagyl per his PCP. Developed symptoms approximately week ago and began the typical regime last Thursday. Noted initial improvement but within the last day, symptoms returned. States significant pain in his left lower abdominal region. Denies any known alleviating or aggravating factors. Recent colonoscopy this past October. Denies fever, chills, vomiting, chest pain or shortness of breath. Initial ED workup included laboratory studies which resulted with WBC 12.6, ALT 87, UA unremarkable. Imaging study included CT abdomen pelvis I personally reviewed showing sigmoid colon within the left pelvis consistent with acute diverticulitis. Vitals blood pressure 141/86, HR 91, RR 13, temp 98.6, SpO2 98% on room air. Hospital Course Hospital Course Hospital Course: Mr. Lewis is a 44-year-old male who presented to the emergency department on 12/10/2024 with complaints of abdominal pain. Patient has been diagnosed by his PCP with diverticulitis, was placed on ciprofloxacin and Flagyl orally. Patient states he had been doing well but pain has gotten progressively worse. He has a significant medical history of diverticulitis, hypertension, GERD, and chronic prostatitis. Workup in the emergency department was significant for WBC of 12.6. No anemia, normal lipase, lactate normal, UA negative for infection. Pat ient did present with tachycardia likely due to abdominal pain. Patient was given fluid bolus in the ED and hospital medicine was consulted for for admission for pain control and broad-spectrum antibiotics. Hospital medicine admitted the patient to the medical surgical floor where antibiotics vancomycin, cefepime, Flagyl were given. CT of abdomen/pelvis shows no obstruction, inflammatory changes in the left lower quadrant. Patient was transition to Levaquin 750 mg IV daily and Flagyl 3 times daily IV, given a clear liquid diet, IV pain medication and antiemetics as needed. Lab work continue to be reassuring, patient denied abdominal pain day of discharge. Patient diet was advanced to low residue, was given Toradol which he states helped significantly. Patient will be discharged home today on Levaquin 750 mg daily to complete a 7- day course in addition to Flagyl 500 mg 3 times daily. Patient also discharged home with Toradol 10 mg 4 times daily as needed for abdominal pain. Not to exceed 5 days total. Day of discharge white count stable at 10.2, no anemia noted. No electrolyte abnormalities, kidney function within normal limits. Patient should follow-up with PCP in approximately 1 week or sooner if needed. Continue tamsulosin 0.8 mg at bedtime as needed for prostate, pantoprazole 40 mg daily, metoprolol 25 mg daily, atorvastatin 40 mg daily. Total time spent on discharge 32 minutes in counseling, documentation, chart review, and direct care with patient. Exam Data for Last 24 hours Vital signs and Labs for Last 24 Hours: Temp Pulse Resp BP Pulse Ox O2 Del Method 98 F 79 16 133/68 97 Room Air 12/11/24 08:00 12/11/24 08:00 12/11/24 08:00 12/11/24 08:00 12/11/24 08:00 12/11/24 08:00 Laboratory Results - last 24 hr 12/11/24 06:32: WBC 10.2, RBC 4.84, Hgb 14.2, Hct 43.4, MCV 89.7, MCH 29.3, MCHC 32.7, RDW 12.9, Plt Count 227, MPV 9.8, Neut % (Auto) 72.8, Lymph % (Auto) 14.3, [place] % (Auto) 8.4, Eos % (Auto) 2.6, Baso % (Auto) 0.9, Neut # (Auto) 7.4, Lymph # (Auto) 1.5, [place] # (Auto) 0.9, Eos # (Auto) 0.3, Baso # (Auto) 0.1, Sodium 134 L, Potassium 4.4, Chloride 104, Carbon Dioxide 22, Anion Gap 12.4, BUN 12, Creatinine 0.90, Estimated Creat Clear 148, Estimated GFR 91, Est GFR ( Amer) 110, Glucose 105 H, Calcium 8.4 I & O for Last 24 hours: Intake & Output 12/08/24 12/09/24 12/10/24 12/11/24 23:59 23:59 23:59 22:59 Intake Total 4251.667 / 4501.667 930 / 930 Output Total 0 / 0 700 / 700 Balance 4251.667 / 4501.667 230 / 230 Weight 65.771 kg 101.208 kg Microbiology Reports for the Last 24 Hours: Microbiology 12/10/24 04:50 Blood Blood Culture - Preliminary NO GROWTH AFTER 24 HOURS 12/10/24 04:50 Blood Blood Culture - Preliminary NO GROWTH AFTER 24 HOURS Constitutional Constitutional: no acute distress, obese and cooperative *Routine HEENT Exam Head: Present normocephalic Eye: Present EOMI and PERRL ENT: Present mucous membranes moist *Routine Neck Exam Neck: Present supple; Absent lymphadenopathy *Routine Respiratory Exam Respiratory: Present CTA bilaterally and normal respiratory effort; Absent wheezes or crackles *Routine Cardiovascular Exam Cardiovascular: Present RRR, Normal S1 and Normal S2; Absent murmur *Routine Abdominal Exam Abdominal: Present soft and normoactive bowel sounds; Absent tenderness or distended *Routine Rectal Exam Patient deferred: visual exam *Routine Exam Patient deferred: penile exam *Routine Extremities Exam Extremities: Present full ROM and pulses intact; Absent cyanosis, clubbing or edema *Routine Skin Exam Skin: Present intact, dry and warm; Absent erythema or rash *Routine Neurological Exam Neurological: Present alert, oriented X3, vision grossly intact, hearing grossly intact and normal speech Routine Psychiatric Exam Psychiatric: Present normal affect Results Data Completed and Pending Labs on day of discharge: Labs from last 24 hours 12/11/24 06:32 WBC 10.2 RBC 4.84 Hgb 14.2 Hct 43.4 MCV 89.7 MCH 29.3 MCHC 32.7 RDW 12.9 Plt Count 227 MPV 9.8 Neut % (Auto) 72.8 Lymph % (Auto) 14.3 [place] % (Auto) 8.4 Eos % (Auto) 2.6 Baso % (Auto) 0.9 Neut # (Auto) 7.4 Lymph # (Auto) 1.5 [place] # (Auto) 0.9 Eos # (Auto) 0.3 Baso # (Auto) 0.1 Sodium 134 L Potassium 4.4 Chloride 104 Carbon Dioxide 22 Anion Gap 12.4 BUN 12 Creatinine 0.90 Estimated Creat Clear 148 Estimated GFR 91 Est GFR ( Amer) 110 Glucose 105 H Calcium 8.4 Preliminary micro results at discharge 12/10/24 04:50 Blood Culture - Preliminary Blood NO GROWTH AFTER 24 HOURS 12/10/24 04:50 Blood Culture - Preliminary Blood NO GROWTH AFTER 24 HOURS DS: Diagnosis Discharge Diagnosis (1) Acute diverticulitis: Status: Acute Code(s): K57.92 - Diverticulitis of intestine, part unspecified, without perforation or abscess without bleeding (2) Chronic prostatitis: Status: Chronic Code(s): N41.1 - Chronic prostatitis (3) Hypertension: Status: Chronic Code(s): I10 - Essential (primary) hypertension Qualifiers: Hypertension type: unspecified Qualified Code(s): I10 - Essential (primary) hypertension (4) Leucocytosis: Status: Acute Code(s): D72.829 - Elevated white blood cell count, unspecified Qualifiers: Leukocytosis type: unspecified Qualified Code(s): D72.829 - Elevated white blood cell count, unspecified (5) GERD (gastroesophageal reflux disease): Status: Acute Code(s): K21.9 - Gastro-esophageal reflux disease without esophagitis Qualifiers: Esophagitis bleeding: without hemorrhage Meds Home Medications and Allergies Home Medications ?Medication ?Instructions ?Recorded ?Confirmed ?Type atorvastatin 40 mg tablet 40 mg PO DAILY 03/27/2003/05 Rx pantoprazole 40 mg tablet,delayed 40 mg PO DAILY 03/2712/10/24 Rx release metoprolol succinate 25 mg 25 mg PO DAILY 12/10/2403/05 History tablet,extended release 24 hr metronidazole 500 mg tablet 500 mg PO TID 12/10/2403/05 History prednisone 20 mg tablet 20 mg PO DAILY 12/10/2403/05 History tamsulosin 0.4 mg capsule 0.8 mg PO HSP PRN PROSTATITI S 12/10/24 12/10/24 History ketorolac 10 mg tablet 10 mg PO Q6H PRN pain #15 ta bs 12/11/24 Rx levofloxacin 750 mg tablet 750 mg PO DAILY #5 tabs 04/05 Rx New Prescriptions to Start Prescriptions: Analilia Mcleod levofloxacin Analilia Katz Allergies Allergy/AdvReac Type Severity Reaction Status Date / Time Penicillins Allergy Verified 11/24/22 16:47 Discharge Plan Disposition Patient Disposition: Home, Self-Care Condition: Fair Follow up Plan Follow up with: Yuko Soriano APRN [Primary Care Provider, Medical] - Enter time for follow up Referral Note: please call fro follow up appointment Prescriptions/Medication Reconciliation: New ketorolac 10 mg tablet 10 mg PO Q6H PRN (Reason: pain) Qty: 15 0RF Rx Instructions: maximum total duration of 5 days from all oral, intranasal, or parenteral formulations levofloxacin 750 mg tablet 750 mg PO DAILY Qty: 5 0RF Continued atorvastatin 40 MG tablet 40 mg PO DAILY 0RF pantoprazole 40 MG tablet,delayed release (DR/EC) 40 mg PO DAILY 0RF tamsulosin 0.4 MG capsule 0.8 mg PO HSP PRN (Reason: PROSTATITIS) prednisone 20 mg tablet 20 mg PO DAILY Patient Comments: TAKE ONE TABLET BY MOUTH ONCE DAILY FOR 7 DAYS ---TAKE WITH FOOD OR MILK--- Rx Instructions: FOR 7 DAYS, FILLED 12/05/24 metronidazole 500 mg tablet 500 mg PO TID Patient Comments: TAKE ONE TABLET BY MOUTH THREE TIMES DAILY FOR 10 DAYS -- FINISH ALL MEDICINE -- --AVOID ANY PRODUCT(S) CONTAINING ALCOHOL WHILE TAKING THIS MEDICATION-- Rx Instructions: FOR 10 DAYS, FILLED 12/05/24 metoprolol succinate 25 mg tablet extended release 24 hr 25 mg PO DAILY Discontinued ciprofloxacin HCl 500 mg tablet 500 mg PO Q12H Patient Comments: TAKE ONE TABLET BY MOUTH EVERY TWELVE HOURS FOR 10 DAYS -- FINISH ALL MEDICINE -- Rx Instructions: FOR 10 DAYS, FILLED 12/05/24 Problem Reconciliation Problems Reviewed?: Yes Patient Discharge Instructions ACTIVITY: Continue current activity DIET: advance to your usual diet Patient Instructions: DI for Diverticulitis, DI for Gastroesophageal Reflux Disease (GERD), DI for Sepsis in Adults, DI for Acute Prostatitis Print Language: Tajik Providers Primary Care Provider: Yuko Soriano Admit Provider: Jayden Madrigal Attending Provider: Jayden Madrigal
--- NOTE | 2024-12-12 10:13 | SW/DCPLANNER ---
Spoke with patient on the phone. Patient stated that he is doing well. Patient stated that he is aware of his upcoming appointments. 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 Patient stated that he has no concerns or questions at this time. Bettye Barnett
== END 2024-12-11 11:15 | disposition home or self-care (01) ==
LOC: ER 05:23 → 2ND 05:25
PROVIDERS: Internal Medicine Adolescent Medicine; Nurse Practitioner Acute Care; Admitting Provider Student in an Organized Health Care Education/Training Program; Emergency Provider Emergency Medicine; PCP Nurse Practitioner Family; Visit Provider Student in an Organized Health Care Education/Training Program
DX: K57.32 Diverticulitis of large intestine without perforation or abscess without bleeding (principal); A41.9 Sepsis, unspecified organism; N41.1 Chronic prostatitis; I10 Essential (primary) hypertension; K21.01 Gastro-esophageal reflux disease with esophagitis, with bleeding; K76.0 Fatty (change of) liver, not elsewhere classified; E78.5 Hyperlipidemia, unspecified; F17.210 Nicotine dependence, cigarettes, uncomplicated; E66.9 Obesity, unspecified; Z68.33 Body mass index [BMI] 33.0-33.9, adult; Z90.49 Acquired absence of other specified parts of digestive tract; Z88.0 Allergy status to penicillin; Z79.899 Other long term (current) drug therapy
CPT/HCPCS: 36415; 71045; 74177; 80048; 80053; 81001; 83605; 83690; 85025; 85610; 85730; 86803; 87040; 87086; 87389; 96361; 96365; 96366; 96367; 96375; 96376; 99285; G0378; J0692; J1171; J1836; J1885; J1956; J2270; J2405; J3375; J7030; J7120; Q9967